=== PATIENT | female | born 1950 | race Caucasian/White ===

== ENCOUNTER 2018-01-26 22:48 | Observation (INO) | payer MEDICARE, SELFPAY ==
--- NOTE | 2018-01-26 | CT_ITS ---
STUDY: CTA CHEST REASON FOR EXAM: Female, 67 years old. Elevated d-dimer RADIATION DOSAGE (If Supplied By Facility): CTDIvol = ( 13.60 ) mGy, DLP = ( 452.59 ) mGycm TECHNIQUE: The examination was performed with the intravenous administration of 75ML ml of Isovue 370 contrast material. Post-processing of the angiographic images was performed, with multiplanar reformation and 3D reconstruction. Individualized dose optimization techniques were used for this CT. COMPARISON: None. FINDINGS: Small hiatal hernia. The contrast bolus is suboptimal for accurately detecting pulmonary emboli. Normal thoracic aorta and visualized great vessels. There is no demonstrated aortic dissection. Normal heart and pericardium. Normal mediastinum. Normal hilar regions. Tracheobronchial calcifications. The lungs are well expanded. Normal pulmonary parenchyma. Normal pleura. Normal chest wall structures. There are degenerative changes of thoracic spine. Normal visualized upper abdomen. CT/CTA Chest W/WO Contrast IMPRESSION: The contrast bolus is suboptimal for accurately detecting pulmonary emboli. If there is further concern, consider nuclear medicine ventilation/perfusion lung scan. No acute pulmonary or mediastinal findings. Electronically Signed: Srinivas Willis MD at 1:08 EDT Tel , Service support ,
[2018-01-26 22:49] VITALS: BP 152/79; PULSE 96; RESP 18; TEMP 37; O2SAT 98; BMI 25.4
--- NOTE | 2018-01-26 22:54 | CT_ITS ---
STUDY: CT BRAIN WITHOUT CONTRAST REASON FOR EXAM: Female, 67 years old. Found lying on floor and severe pain, doesn't remember fall RADIATION DOSAGE (If Supplied By Facility): CTDIvol = ( 44.99 ) mGy, DLP = ( 779.24 ) mGycm TECHNIQUE: Transaxial CT imaging of the brain was performed without administration of intravenous contrast material. Individualized dose optimization techniques were used for this CT. COMPARISON: None. FINDINGS: Normal soft tissue structures. Normal calvarium. Normal size ventricles and extra-axial spaces for the patient's age. There are areas of decreased attenuation within the white matter tracts of the supratentorial brain, consistent with microvascular disease changes. Age-related changes of the basal ganglia. Normal brainstem. Normal cerebellum. There is no intracranial hemorrhage. There are no findings of an acute ischemic infarction. Normal visualized paranasal sinuses. CT/Brain/Head without Contrast IMPRESSION: No fracture or hemorrhage. No evidence of acute infarct. Electronically Signed: Srinivas Willis MD at 0:11 EDT Tel , Service support ,
--- NOTE | 2018-01-26 22:55 | EKG12_ITS ---
Test Reason : SYNCOPE Blood Pressure : / mmHG Vent. Rate : 090 BPM Atrial Rate : 090 BPM P-R Int : 118 ms QRS Dur : 084 ms QT Int : 384 ms P-R-T Axes : 059 092 067 degrees QTc Int : 469 ms Normal sinus rhythm Rightward axis Borderline ECG Confirmed by PRUDENCIO CORTES, GABINO ([id number]), industrial editor PAOLA RILEY ([id number] on 02/03/2018 1:43:03 PM Referred By: KARLOS Confirmed By:GABINO FLANNERY MD
--- NOTE | 2018-01-26 22:56 | CT_ITS ---
STUDY: CT CERVICAL SPINE WITHOUT CONTRAST REASON FOR EXAM: Female, 67 years old. FOUND LAYING ON FLOOR IN SEVERE PAIN WITH LEG CRAMPS, DOESN'T REMEMBER THE FALL RADIATION DOSAGE (If Supplied By Facility): CTDIvol = ( 15.91 ) mGy, DLP = ( 334.77 ) mGycm TECHNIQUE: High resolution transaxial imaging was performed without contrast material. Sagittal and coronal images were reconstructed. Individualized dose optimization techniques were used for this CT. COMPARISON: None FINDINGS: Normal craniovertebral junction. Degenerative changes are present involving the atlantodental articulation. Normal odontoid process. Normal cervical lordosis. Normal vertebral bodies and posterior osseous elements. Diffuse degenerative disease is present. No acute fractures or dislocations are seen. Carotid calcifications. CT/Spine Cervical without Contras IMPRESSION: No acute osseous injury is evident. Comment: MRI is more sensitive than CT in detecting cord injury, ligament injury, and epidural hematoma. If there is continued clinical concern for any of these entities, MRI correlation should be considered if possible. Electronically Signed: Srinivas Willis MD at 0:13 EDT Tel , Service support ,
--- NOTE | 2018-01-26 22:57 | ED.VISSUMM ---
- ER Visit Summary Date of Service: 01/26/18 Chief Complaint: Syncopal episode History of Present Illness: The patient is a 67 F who presents after syncopal episode. Patient was at home in her basement when her heard a crashing sound and found her laying on the ground. Patient was not near any staircase. Patient does not remember the episode and denies any prodromal symptoms. She has felt well today and has not had a headache, dizziness, lightheadedness, chest pain, shortness of breath or any other complaints. She is currently complaining of nausea and had bilateral thigh muscle cramping after regaining consciousness but has no other complaints, including headache, neck pain, back pain or any other complaints. 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 She is currently not on anticoagulation and denies any recent travel, surgery. She has no calf pain, shortness of breath, chest pain dizziness or lightheadedness currently. Denies any medical problems. Physical Examination: Vital signs: afebrile, hemodynamically stable, heart rate 96, no hypoxia on room air General: well nourished, well developed, in no distress Skin: warm, dry, no rash, no pallor HEENT: normocephalic and atraumatic; PERRL, EOMI, moist mucous membranes Neck, no midline tenderness deformities or step-offs, full range of motion Cardiovascular: regular rate and rhythm without murmurs, no peripheral edema, 2+ pulses all distal extremities Respiratory: No increased work of breathing, lungs are clear to auscultation bilaterally, no rales, rhonchi or wheezing Abdominal: Abdomen is soft, nontender with normoactive bowel sounds, no guarding or rebound, no masses MSK: Moves all extremities, no deformities, normal strength, no calf tenderness, asymmetry, palpable cords, negative Homans sign Neuro: Awake and alert, oriented ?4. No facial droop, sensation and motor function intact and symmetric Test Results: Abnormal Lab Results 01/26/18 01/26/18 01/26/18 22:55 22:55 22:55 WBC 10.2 RBC 4.30 Hgb 12.8 Hct 39.0 MCV 90.7 MCH 29.8 MCHC 32.8 RDW 14.1 RDW Differential 46.3 H Plt Count 236 MPV 10.4 Immature Gran % (Auto) 0.300 Neut % (Auto) 57.6 Lymph % (Auto) 32.1 [place] % (Auto) 7.1 Eos % (Auto) 2.3 Baso % (Auto) 0.6 Absolute Neuts (auto) 5.9 Absolute Lymphs (auto) 3.28 Total Counted Not Reportable PT 12.0 INR 0.9 APTT 23.0 L D-Dimer Quant (PE/DVT) 1.46 H* Sodium 142 Potassium 3.8 Chloride 108 H Carbon Dioxide 25.0 Anion Gap 9 BUN 13 Creatinine 1.23 H Estim Creat Clear Calc 33.95 Est GFR (MDRD) Af Amer 56 L Est GFR (MDRD) Non-Af 46 L BUN/Creatinine Ratio 10.6 Glucose 135 H Calcium 8.6 Magnesium Total Bilirubin 0.60 AST 14 L ALT 19 Alkaline Phosphatase 64 Troponin I < 0.015 Total Protein 6.9 Albumin 3.6 Globulin 3.3 Albumin/Globulin Ratio 1.1 Urine Color Urine Clarity Urine pH Ur Specific [place] Urine Protein Urine Glucose (UA) Urine Ketones Urine Occult Blood Urine Nitrite Urine Bilirubin Urine Urobilinogen Ur Leukocyte Esterase Urine RBC Urine WBC Ur Squamous Epith Cells Urine Bacteria Urine Mucus POC Glucose 01/26/18 01/26/18 01/26/18 22:55 23:20 23:22 WBC RBC Hgb Hct MCV MCH MCHC RDW RDW Differential Plt Count MPV Immature Gran % (Auto) Neut % (Auto) Lymph % (Auto) [place] % (Auto) Eos % (Auto) Baso % (Auto) Absolute Neuts (auto) Absolute Lymphs (auto) Total Counted PT INR APTT D-Dimer Quant (PE/DVT) Sodium Potassium Chloride Carbon Dioxide Anion Gap BUN Creatinine Estim Creat Clear Calc Est GFR (MDRD) Af Amer Est GFR (MDRD) Non-Af BUN/Creatinine Ratio Glucose Calcium Magnesium 1.9 Total Bilirubin AST ALT Alkaline Phosphatase Troponin I Total Protein Albumin Globulin Albumin/Globulin Ratio Urine Color Yellow Urine Clarity Clear Urine pH 6.5 Ur Specific [place] 1.010 Urine Protein 15 H Urine Glucose (UA) Normal Urine Ketones Negative Urine Occult Blood 10 H Urine Nitrite Negative Urine Bilirubin Negative Urine Urobilinogen Normal Ur Leukocyte Esterase Negative Urine RBC 0-5 SEEN Urine WBC 0 SEEN Ur Squamous Epith Cells 0 SEEN Urine Bacteria 0 SEEN Urine Mucus 0 SEEN POC Glucose 131 H Clinical Impression(s) from Imaging Studies Chest CTA 01/26/18 00:00 IMPRESSION: The contrast bolus is suboptimal for accurately detecting pulmonary emboli. If there is further concern, consider nuclear medicine ventilation/perfusion lung scan. No acute pulmonary or mediastinal findings. Electronically Signed: Srinivas Willis MD at 1:08 EDT Tel , Service support , Brain CT 01/26/18 22:54 IMPRESSION: No fracture or hemorrhage. No evidence of acute infarct. Electronically Signed: Srinivas Willis MD at 0:11 EDT Tel , Service support , Cervical Spine CT 01/26/18 22:56 IMPRESSION: No acute osseous injury is evident. Comment: MRI is more sensitive than CT in detecting cord injury, ligament injury, and epidural hematoma. If there is continued clinical concern for any of these entities, MRI correlation should be considered if possible. Electronically Signed: Srinivas Willis MD at 0:13 EDT Tel , Service support , Chest X-Ray 01/26/18 23:05 IMPRESSION: No acute thoracic pathology. Electronically Signed: Jude Ayala, at 23:35 EDT Tel , Service support , Medications Given Discontinued Medications Acetaminophen (Tylenol) 1,000 mg PO X1 ONE Stop: 01/27/18 00:15 Last Admin: 01/27/18 00:17 Dose: 1,000 mg Sodium Chloride () 1,000 mls @ 1,000 mls/hr IV .Q1H ONE Stop: 01/26/18 23:53 Last Admin: 01/26/18 23:16 Dose: 1,000 mls/hr Ondansetron HCl (Zofran) 4 mg IV X1 ONE Stop: 01/26/18 22:55 Last Admin: 01/26/18 23:16 Dose: 4 mg Emergency Department Course and Treatment: Patient is currently sniffing an alcohol prep pad and has improvement in her nausea. Syncope workup was performed. EKG showed a sinus rhythm without ischemia or ectopy. No pro arrhythmic changes noted. It was unchanged from a prior EKG. Labs showed no leukocytosis or anemia. No electrolyte derangements that would explain her cramping. Troponin was negative. CT of the head and neck was performed due to the history of unwitnessed trauma. CT head showed no intracranial hemorrhage and C-spine showed no acute fracture. Because patient had the syncopal episode and is currently having leg pain, was tachycardic at initial evaluation, and has a history of unprovoked DVT in the past, d-dimer was performed to evaluate for possible venous thromboembolism contributing to the syncopal episode. D-dimer was elevated. A CTA of the chest was performed to look for pulmonary embolism, and the contrast bolus was not timed to be able to adequately evaluate for PE. I have discussed with patient and family that even if her workup tonight did not give an exact cause of her syncopal episode, we could not rule out that it was a cardiac dysrhythmia that caused the sudden syncope without prodromal symptoms and that she would require admission for further workup for her syncope. Patient was discussed with the hospitalist for admission, including further workup for possible pulmonary embolism given that the CTA of the chest was nondiagnostic. At this time patient is not hypoxic, has no tachypnea. Heart rate is still in the 90s but no further tachycardia. Patient is agreeable with this plan and was admitted for further syncopal workup. Treatment Plan: [] Disposition: [] Impression: Syncopal episode, elevated d-dimer, muscle cramps, history of unprovoked DVT This note was generated with [employer] dictation software. It may contain incorrect words, spelling, and punctuation that were not noted in review of the chart prior to signing ED Disposition - Plan for ED Patient: Chief Complaint: Syncope
--- NOTE | 2018-01-26 23:00 | ED.DCSUM_ITS ---
- ER Visit Summary Date of Service: 01/26/18 Chief Complaint: Syncopal episode History of Present Illness: The patient is a 67 F who presents after syncopal episode. Patient was at home in her basement when her heard a crashing sound and found her laying on the ground. Patient was not near any staircase. Patient does not remember the episode and denies any prodromal symptoms. She has felt well today and has not had a headache, dizziness, lightheadedness, chest pain, shortness of breath or any other complaints. She is currently complaining of nausea and had bilateral thigh muscle cramping after regaining consciousness but has no other complaints, including headache, neck pain, back pain or any other complaints. 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 She is currently not on anticoagulation and denies any recent travel, surgery. She has no calf pain, shortness of breath, chest pain dizziness or lightheadedness currently. Denies any medical problems. Physical Examination: Vital signs: afebrile, hemodynamically stable, heart rate 96, no hypoxia on room air General: well nourished, well developed, in no distress Skin: warm, dry, no rash, no pallor HEENT: normocephalic and atraumatic; PERRL, EOMI, moist mucous membranes Neck, no midline tenderness deformities or step-offs, full range of motion Cardiovascular: regular rate and rhythm without murmurs, no peripheral edema, 2+ pulses all distal extremities Respiratory: No increased work of breathing, lungs are clear to auscultation bilaterally, no rales, rhonchi or wheezing Abdominal: Abdomen is soft, nontender with normoactive bowel sounds, no guarding or rebound, no masses MSK: Moves all extremities, no deformities, normal strength, no calf tenderness, asymmetry, palpable cords, negative Homans sign Neuro: Awake and alert, oriented ?4. No facial droop, sensation and motor function intact and symmetric Test Results: Abnormal Lab Results 01/26/18 01/26/18 01/26/18 22:55 22:55 22:55 WBC 10.2 RBC 4.30 Hgb 12.8 Hct 39.0 MCV 90.7 MCH 29.8 MCHC 32.8 RDW 14.1 RDW Differential 46.3 H Plt Count 236 MPV 10.4 Immature Gran % (Auto) 0.300 Neut % (Auto) 57.6 Lymph % (Auto) 32.1 [place] % (Auto) 7.1 Eos % (Auto) 2.3 Baso % (Auto) 0.6 Absolute Neuts (auto) 5.9 Absolute Lymphs (auto) 3.28 Total Counted Not Reportable PT 12.0 INR 0.9 APTT 23.0 L D-Dimer Quant (PE/DVT) 1.46 H* Sodium 142 Potassium 3.8 Chloride 108 H Carbon Dioxide 25.0 Anion Gap 9 BUN 13 Creatinine 1.23 H Estim Creat Clear Calc 33.95 Est GFR (MDRD) Af Amer 56 L Est GFR (MDRD) Non-Af 46 L BUN/Creatinine Ratio 10.6 Glucose 135 H Calcium 8.6 Magnesium Total Bilirubin 0.60 AST 14 L ALT 19 Alkaline Phosphatase 64 Troponin I < 0.015 Total Protein 6.9 Albumin 3.6 Globulin 3.3 Albumin/Globulin Ratio 1.1 Urine Color Urine Clarity Urine pH Ur Specific [place] Urine Protein Urine Glucose (UA) Urine Ketones Urine Occult Blood Urine Nitrite Urine Bilirubin Urine Urobilinogen Ur Leukocyte Esterase Urine RBC Urine WBC Ur Squamous Epith Cells Urine Bacteria Urine Mucus POC Glucose 01/26/18 01/26/18 01/26/18 22:55 23:20 23:22 WBC RBC Hgb Hct MCV MCH MCHC RDW RDW Differential Plt Count MPV Immature Gran % (Auto) Neut % (Auto) Lymph % (Auto) [place] % (Auto) Eos % (Auto) Baso % (Auto) Absolute Neuts (auto) Absolute Lymphs (auto) Total Counted PT INR APTT D-Dimer Quant (PE/DVT) Sodium Potassium Chloride Carbon Dioxide Anion Gap BUN Creatinine Estim Creat Clear Calc Est GFR (MDRD) Af Amer Est GFR (MDRD) Non-Af BUN/Creatinine Ratio Glucose Calcium Magnesium 1.9 Total Bilirubin AST ALT Alkaline Phosphatase Troponin I Total Protein Albumin Globulin Albumin/Globulin Ratio Urine Color Yellow Urine Clarity Clear Urine pH 6.5 Ur Specific [place] 1.010 Urine Protein 15 H Urine Glucose (UA) Normal Urine Ketones Negative Urine Occult Blood 10 H Urine Nitrite Negative Urine Bilirubin Negative Urine Urobilinogen Normal Ur Leukocyte Esterase Negative Urine RBC 0-5 SEEN Urine WBC 0 SEEN Ur Squamous Epith Cells 0 SEEN Urine Bacteria 0 SEEN Urine Mucus 0 SEEN POC Glucose 131 H Clinical Impression(s) from Imaging Studies Chest CTA 01/26/18 00:00 IMPRESSION: The contrast bolus is suboptimal for accurately detecting pulmonary emboli. If there is further concern, consider nuclear medicine ventilation/perfusion lung scan. No acute pulmonary or mediastinal findings. Electronically Signed: Srinivas Willis MD at 1:08 EDT Tel , Service support , Brain CT 01/26/18 22:54 IMPRESSION: No fracture or hemorrhage. No evidence of acute infarct. Electronically Signed: Srinivas Willis MD at 0:11 EDT Tel , Service support , Cervical Spine CT 01/26/18 22:56 IMPRESSION: No acute osseous injury is evident. Comment: MRI is more sensitive than CT in detecting cord injury, ligament injury, and epidural hematoma. If there is continued clinical concern for any of these entities, MRI correlation should be considered if possible. Electronically Signed: Srinivas Willis MD at 0:13 EDT Tel , Service support , Chest X-Ray 01/26/18 23:05 IMPRESSION: No acute thoracic pathology. Electronically Signed: Jude Ayala, at 23:35 EDT Tel , Service support , Medications Given Discontinued Medications Acetaminophen (Tylenol) 1,000 mg PO X1 ONE Stop: 01/27/18 00:15 Last Admin: 01/27/18 00:17 Dose: 1,000 mg Sodium Chloride () 1,000 mls @ 1,000 mls/hr IV .Q1H ONE Stop: 01/26/18 23:53 Last Admin: 01/26/18 23:16 Dose: 1,000 mls/hr Ondansetron HCl (Zofran) 4 mg IV X1 ONE Stop: 01/26/18 22:55 Last Admin: 01/26/18 23:16 Dose: 4 mg Emergency Department Course and Treatment: Patient is currently sniffing an alcohol prep pad and has improvement in her nausea. Syncope workup was performed. EKG showed a sinus rhythm without ischemia or ectopy. No pro arrhythmic changes noted. It was unchanged from a prior EKG. Labs showed no leukocytosis or anemia. No electrolyte derangements that would explain her cramping. Troponin was negative. CT of the head and neck was performed due to the history of unwitnessed trauma. CT head showed no intracranial hemorrhage and C-spine showed no acute fracture. Because patient had the syncopal episode and is currently having leg pain, was tachycardic at initial evaluation, and has a history of unprovoked DVT in the past, d-dimer was performed to evaluate for possible venous thromboembolism contributing to the syncopal episode. D-dimer was elevated. A CTA of the chest was performed to look for pulmonary embolism, and the contrast bolus was not timed to be able to adequately evaluate for PE. I have discussed with patient and family that even if her workup tonight did not give an exact cause of her syncopal episode, we could not rule out that it was a cardiac dysrhythmia that caused the sudden syncope without prodromal symptoms and that she would require admission for further workup for her syncope. Patient was discussed with the hospitalist for admission, including further workup for possible pulmonary embolism given that the CTA of the chest was nondiagnostic. At this time patient is not hypoxic, has no tachypnea. Heart rate is still in the 90s but no further tachycardia. Patient is agreeable with this plan and was admitted for further syncopal workup. Treatment Plan: [] Disposition: [] Impression: Syncopal episode, elevated d-dimer, muscle cramps, history of unprovoked DVT This note was generated with [employer] dictation software. It may contain incorrect words, spelling, and punctuation that were not noted in review of the chart prior to signing ED Disposition - Plan for ED Patient: Chief Complaint: Syncope
--- NOTE | 2018-01-26 23:05 | RAD_ITS ---
STUDY: X-RAY CHEST REASON FOR EXAM: Female, 67 years old. Syncope TECHNIQUE: Frontal view of the chest COMPARISON: 05/27/2016 FINDINGS: The lungs are clear. There are no pleural effusions. There is no pneumothorax. The heart is normal in size. The visualized osseous structures are within normal limits. RAD/Chest 1 View (Portable) IMPRESSION: No acute thoracic pathology. Electronically Signed: Jude Ayala, at 23:35 EDT Tel , Service support ,
[2018-01-26 23:11] LABS: Absolute Lymphocyte Count 3.28 X10^3/ul (0.83-4.51); Absolute Neutrophil Count 5.9 X10^3/uL (2.0-7.7); Basophil# 0.06 X10^3/uL; Basophil% 0.6 % (0-1); Eosinophil# 0.24 X10^3/uL; Eosinophils% 2.3 % (0-5); Hemoglobin 12.8 g/dl (12.0-15.0); Lymphocyte # 3.28 X10^3/ul (4.0); Lymphocyte % 32.1 % (19-41); Mean Corp Hgb Conc 32.8 g/gl (32-36); Mean Corpuscular Hgb 29.8 pg (27.0-32.0); Mean Corpuscular Volume 90.7 fL (81-99); Mean Platelet Vol. 10.4 fl (6.2-12.0); Monocyte# 0.73 X10^3/uL; Monocyte% 7.1 % (0-10); Neutrophil # 5.88 X10^3/uL (2.7-7.7); Neutrophil % 57.6 % (47-70); POSITIVE COUNT NO; POSITIVE DIFFERENTIAL NO; POSITIVE MORPHOLOGY NO; Platelet Count 236 K/mm3 (150-450); RBC Distribution Width CV 14.1 % (11.6-14.6); RBC Distribution Width SD 46.3 fl (35.1-43.9); White Blood Count 10.2 K/mm3 (4.4-11.0)
[2018-01-26] MEDS: Ondansetron 4 MG/2 ML Vial IV (23:16)
[2018-01-26] MEDS: 0.9% Normal Saline 1,000 ML 1000 ML IV (23:16)
[2018-01-26 23:19] LABS: International Normalized Ratio 0.9
[2018-01-26 23:27] LABS: ALB/GLOB Ratio 1.1 RATIO (0.9-2.4); AST(SGOT) 14 U/L (15-37); Alanine Aminotransfer ALT/SGPT 19 U/L (13-56); Albumin, Serum 3.6 g/dL (3.2-5.0); Alkaline Phosphatase 64 U/L (45-117); Anion Gap 9 (5-15); BUN 13 mg/dL (7-18); BUN/Creat Ratio 10.6 RATIO (10-20); Calcium,Total 8.6 mg/dL (8.5-10.1); Chloride 108 mmol/L (98-107); Creatinine, Serum 1.23 mg/dL (0.55-1.02); EST Glomerular Filtration Rate 46 mL/min (>60); Est Glom Filt Rate - Afr Amer 56 mL/min (>60); Estimated Creatinine Clearance 33.95 ml/min; Globulin 3.3 g/dL (2.2-4.2); Glucose 135 mg/dL (74-106); Potassium 3.8 mmol/L (3.5-5.1); Protein, Total 6.9 g/dL (6.4-8.2); Sodium Level 142 mmol/L (136-145)
[2018-01-26 23:28] LABS: Bacteria 0 SEEN /hpf (None Seen); Mucous, Urine 0 SEEN /hpf (<or=2+); Squamous Epithelial Cells - UA 0 SEEN /hpf (5-10); White Blood Cells 0 SEEN /hpf (0-5)
[2018-01-26 23:30] LABS: Bedside Glucose 131 mg/dL (70-110)
[2018-01-26 23:34] LABS: Color, Urine Yellow (Yellow); Glucose, Dipstick Normal (Normal); Ketone-Dipstick Negative (Negative); Leukocyte Esterase-Dipstick Negative /ul (Negative); Nitrite-Dipstick Negative (Negative); Occult Blood-Urine 10 /ul (Negative); Protein-Dipstick 15 mg/dl (Negative); Urine Bilirubin Dipstick Negative (Negative); Urine Clarity Clear (Clear); Urine Urobilinogen Normal (Normal); Urine pH 6.5 (5.0 - 8.0)
[2018-01-26 23:37] LABS: D-Dimer Quantitative (DVT/PE) 1.46 FEU/ug/m (0.27-0.49)
[2018-01-26 23:42] LABS: Red Blood Cells-Urine 0-5 SEEN /hpf (0-5)
[2018-01-27] VITALS (13 sets, daily range): BP systolic 133–149; BP diastolic 76–93; PULSE 66–109; RESP 16–18; TEMP 36.5–37.1; O2SAT 96–99; BMI 25.5; BMI 23.9
[2018-01-27] MEDS: Acetaminophen 500 MG Tablet 1000 MG PO (00:17)
--- NOTE | 2018-01-27 02:05 | PCM.HP.STD ---
Problem List (1) Syncope and collapse Status: Acute (2) SHAUNNA (acute kidney injury) Status: Acute History of Present Illness Date of Admission: 01/27/18 Chief Complaint: syncope with collapse The patient is a 67 year old F with a significant history of hypertension; and irritable bowel syndrome(spastic colon) who lost consciousness and fell at her kitchen. Her heard a loud noise and and found patient on the floor. Reportedly patient has some shortness of breath after she was found on the floor. Patient reported that she had some leg cramping when she woke up. Patient reports periodic leg cramping N every months. She reports phlebitis the posterior left leg for which reason she was placed on Coumadin for 8 weeks. ED doctor reported some mild tachycardia. At the emergency department d-dimer was elevated. Subsequent CTPA was nondiagnostic because of poor timing of contrast. At the emergency department patient was found to have severely elevated creatinine above her baseline. Past Medical History Medical History: Medical History (Last Updated 01/27/18 @ 03:27 by Dinh Lopez MD) HTN (hypertension) I10 Allergies No Known Allergies Allergy (Verified 01/26/18 22:55) Surgical History: hysterectomy, - - x 2. Vein surgery. Lives: Spouse/ Significant Other Smoking Status: Former smoker Alcohol: None - *Family History Maternal History Items: Diabetes - Maternal uncle had diabetes. Review of Systems Constitutional: Denies: Chills, Fever, Weight Change HEENT: Denies: Head Aches, Sinus Congestion, Sinus Drainage Cardiovascular: Denies: Chest Pain, Palpitations Respiratory: Reports: Shortness of Breath. Denies: Cough, Shortness of breath at rest, Sputum production Gastrointestinal: Denies: Abdominal Pain, Nausea, Vomiting Genitourinary: Denies: Dysuria Musculoskeletal: Denies: Joint Pain, Joint Tenderness Skin: Denies: Rash, Wounds Neurological: Reports: Numbness - left leg (chronic). Denies: Focal weakness, Tingling Psychiatric: Denies: Anxiety, Depression, Homicidal Ideations, Suicidal Ideations Hematologic/ Lymphatic: Denies: Easy Bruising, Easy Bleeding VTE Information - Inpt Only VTE Present on Admission: No VTE Mechan Device Prophylaxis: None VTE Pharm Prophylaxis ordered?: Yes Patient Problems: Active and Suspected Problems (Last Updated 01/27/18 @ 03:27 by Dinh Lopez MD) Syncope and collapse (Acute) SHAUNNA (acute kidney injury) (Acute) - Physical Exam General: Alert, Oriented x3, Cooperative HEENT: Atraumatic, PERRLA, EOMI, Normocephalic Neck: Supple, No JVD, Negative Carotid Bruits Lungs: Clear to auscultation, Normal air movement Cardiovascular: Regular rate, No murmurs Abdomen: Bowel Sounds Present, Soft, Non Tender Extremities: No edema, Capillary Refill Less than 3 Seconds Skin: No rashes, - - Redness of face Musculoskeletal: No Tenderness to Palpation of Joints or Extremities Neurological: Cranial nerves II-XII grossly intact Psych/Mental Status: Normal Affect, Appropriate Vital Signs Temp Pulse Resp BP Pulse Ox 98.6 F 96 16 142/76 H 98 01/26/18 22:49 01/27/18 01:02 01/27/18 01:02 01/27/18 01:02 01/27/18 01:02 Oxygen Delivery Method Room Air Weight: 61.235 kg Body Mass Index (BMI) 25.4 Finger Stick Blood Glucose 131 Laboratory Tests Past 24 Hrs 01/26/18 01/26/18 01/26/18 22:55 22:55 22:55 WBC 10.2 RBC 4.30 Hgb 12.8 Hct 39.0 MCV 90.7 MCH 29.8 MCHC 32.8 RDW 14.1 RDW Differential 46.3 H Plt Count 236 MPV 10.4 Immature Gran % (Auto) 0.300 Neut % (Auto) 57.6 Lymph % (Auto) 32.1 [place] % (Auto) 7.1 Eos % (Auto) 2.3 Baso % (Auto) 0.6 Absolute Neuts (auto) 5.9 Absolute Lymphs (auto) 3.28 Total Counted Not Reportable PT 12.0 INR 0.9 APTT 23.0 L D-Dimer Quant (PE/DVT) 1.46 H* Sodium 142 Potassium 3.8 Chloride 108 H Carbon Dioxide 25.0 Anion Gap 9 BUN 13 Creatinine 1.23 H Estim Creat Clear Calc 33.95 Est GFR (MDRD) Af Amer 56 L Est GFR (MDRD) Non-Af 46 L BUN/Creatinine Ratio 10.6 Glucose 135 H Calcium 8.6 Total Bilirubin 0.60 AST 14 L ALT 19 Alkaline Phosphatase 64 Troponin I < 0.015 Total Protein 6.9 Albumin 3.6 Globulin 3.3 Albumin/Globulin Ratio 1.1 Urine Color Urine Clarity Urine pH Ur Specific [place] Urine Protein Urine Glucose (UA) Urine Ketones Urine Occult Blood Urine Nitrite Urine Bilirubin Urine Urobilinogen Ur Leukocyte Esterase Urine RBC Urine WBC Ur Squamous Epith Cells Urine Bacteria Urine Mucus 01/26/18 23:20 WBC RBC Hgb Hct MCV MCH MCHC RDW RDW Differential Plt Count MPV Immature Gran % (Auto) Neut % (Auto) Lymph % (Auto) [place] % (Auto) Eos % (Auto) Baso % (Auto) Absolute Neuts (auto) Absolute Lymphs (auto) Total Counted PT INR APTT D-Dimer Quant (PE/DVT) Sodium Potassium Chloride Carbon Dioxide Anion Gap BUN Creatinine Estim Creat Clear Calc Est GFR (MDRD) Af Amer Est GFR (MDRD) Non-Af BUN/Creatinine Ratio Glucose Calcium Total Bilirubin AST ALT Alkaline Phosphatase Troponin I Total Protein Albumin Globulin Albumin/Globulin Ratio Urine Color Yellow Urine Clarity Clear Urine pH 6.5 Ur Specific [place] 1.010 Urine Protein 15 H Urine Glucose (UA) Normal Urine Ketones Negative Urine Occult Blood 10 H Urine Nitrite Negative Urine Bilirubin Negative Urine Urobilinogen Normal Ur Leukocyte Esterase Negative Urine RBC 0-5 SEEN Urine WBC 0 SEEN Ur Squamous Epith Cells 0 SEEN Urine Bacteria 0 SEEN Urine Mucus 0 SEEN POC Glucose 01/26/18 23:22 POC Glucose 131 H Assessment/Plan All Active Problems (Last Updated 01/27/18 @ 03:27 by Dinh Lopez MD) Syncope and collapse (Acute) SHAUNNA (acute kidney injury) (Acute) The patient is a 67 year old F with a significant history of hypertension; and irritable bowel syndrome(spastic colon) who lost consciousness and fell at her kitchen. Syncope with collapse. Etiology is unclear at this time. Likely vasovagal as patient had no prodrome. Patient with no seizure activity; tongue biting or loss of bowel or bladder during episode. Orthostatic blood pressures ordered. Echocardiogram ordered. Less likely to be PE as patient has fully recovered. Because of elevated d-dimer will do further studies for PE. Since patient already received contrast and now she is in SHAUNNA will do V/Q SCAN Consider conversation with cardiology for consideration of event monitor/loop recorder. Consult not placed at this time. SHAUNNA Creatinine on admission was 1.23. Creatinine in 2005 was 0.95. BUN over creatinine is less than 20. Urine osmolality, urine sodium and urine creatinine ordered. Received IV, saline bolus at the ED. Patient at further risk of kidney injury due to IV contrast for CTPA. Gentle IV fluid hydration with half-normal saline since she is mildly hyperchloremic.. Trend BMP. Hypertension At admission blood pressure was not within goal. Patient reported that she takes some antihypertensive medication better but she does not know the name. Labetalol ordered. Bilateral legs cramp. This is chronic. However because of elevated d-dimer will order bilateral leg Doppler. Magnesium, calcium, sodium unremarkable. CPK ordered Irritable bowel syndrome At home patient takes some kind of tea every morning to make her bowels move. MiraLAX daily ordered. DVT prophylaxis Subcutaneous heparin. Code Visit OBSV E&M: [id number] Initial observation care L3
[2018-01-27 02:48] LABS: Magnesium 1.9 mg/dL (1.6-2.6)
--- NOTE | 2018-01-27 03:46 | VDLE_ITS ---
Reason For Study: Elevated D dimer RIGHT LEFT GSV is normal. CFV is compressible, spontaneous, phasic, CFV is compressible, spontaneous, phasic, competent, and demonstrates normal competent and demonstrates normal augmentation. augmentation. FV is compressible, spontaneous, phasic, FV is compressible, spontaneous, phasic, competent and demonstrates normal competent and demonstrates normal augmentation. augmentation. POP V is compressible, spontaneous, phasic, POP V is compressible, spontaneous, phasic, competent and demonstrates normal competent and demonstrates normal augmentation. augmentation. T/P Trunk is compressible. T/P Trunk is compressible. PTV is compressible. PTV is compressible. LT PerV is compressible. RT PerV is compressible. Lt GSV not seen. Hypoechoic, non vascular structure noted Rt Pop Fossa measuring 1.46cm x 2.06cm. Procedure Exam performed portable in patient room. A preliminary report was called and/or faxed to [place] [facility]. <> Interpretation Summary Right medial popliteal space 1.46 x 2.06 cm, probable small Murry's cyst No evidence for acute deep venous thrombosis bilateral lower extremities. Patent and compressible right great saphenous vein Non visualized left great saphenous vein Ordering Physician: Dinh Lopez Referring Physician: Manju Santos Performed By: Maris Jacobs, ANAYELI, RVT
--- NOTE | 2018-01-27 03:46 | NM_ITS ---
CLINICAL: 67-year-old female with reported history of syncopal episode and elevation of the d-dimer. VENTILATION-PERFUSION LUNG SCINTIGRAPHY COMPARISON: CTA of the chest report 01/27/2018, plain film chest radiograph report 01/26/2018 FINDINGS: The patient was administered 48.2 mCi 99m Tc DTPA aerosol. The aerosol ventilation study demonstrates mild heterogeneous ventilation throughout the bilateral lung willett without corresponding radiographic changes defined on plain film chest x-ray report 01/26/2018. Central clumping of the aerosol is noted in the bilateral hemithorax. Following the intravenous administration of 5.5 mCi of 99m Tc MAA the pulmonary perfusion study reveals uniform perfusion throughout both lung willett. There are no segmental or subsegmental perfusion defects identified. There are no ventilation-perfusion mismatches observed. NM/Lung Scan Vent/Perf IMPRESSION: 1. NORMAL 99m Tc MAA pulmonary perfusion imaging examination, according to PIOPED II interpretive criteria. (Sotsman et al, Radiology 246: 941, 2008 Sorodney et al, J Nucl Med 49: 1741, 2008). 2. Central clumping of the aerosol may be secondary to obstructive airway mechanics and or clinical tachypnea. Electronically Signed: Marc Franz DO at 11:26 EDT Tel , Service support ,
--- NOTE | 2018-01-27 03:46 | ECHOD_ITS ---
Reason For Study: Arrhythmia Procedure This was a 2D Doppler, Color Flow transthoracic echocardiogram. Exam performed portable in patient room. Left Ventricle Normal size and thickness. The estimated ejection fraction is 65 %. Stage 1 diastolic dysfunction. No regional wall motion abnormalities noted. Right Ventricle Normal size and thickness. Normal systolic function. Atria Normal left atrium. Normal right atrium. Normal atrial septum. Mitral Valve The mitral valve is structurally normal. No prolapse or stenosis seen. Tricuspid Valve Normal tricuspid valve. Trivial tricuspid valve insufficiency. Right ventricular systolic pressure estimated to be 27 mmHg. Aortic Valve Trisinus/trileaflet aortic valve. Normal aortic valve. Pulmonic Valve Normal pulmonic valve. Trivial pulmonic valve insufficiency. Great Vessels Normal aortic root. Normal arch. Normal inferior vena cava. Inferior vena cava collapse with sniff. Pericardium/Pleural No pericardial effusion. MMode/2D Measurements & Calculations LVIDd: 4.3 cm IVSd: 0.84 cm Ao root diam: 3.4 cm LVIDs: 2.2 cm LVPWd: 0.65 cm LA dimension: 3.1 cm RVDd: 3.7 cm FS: 48.7 % LAV(MOD-bp): 39.3 ml LA A4 area: 14.9 cm2 RA A4 area: 12.6 cm2 LAV(MOD-bp) Indexed: 24.7 ml/m2 LAV(MOD-sp2): 32.9 ml LAV(MOD-sp4): 41.1 ml Time Measurements MV dec time: 0.20 sec Doppler Measurements & Calculations MV E max jasbir: 85.7 cm/sec Lat Peak E' Jasbir: 14.2 cm/sec Med Peak E' Jasbir: 8.6 cm/sec MV A max jasbir: 115.4 cm/sec E/E' lat: 6.0 E/E' med: 9.9 MV E/A: 0.74 MV V2 max: 113.6 cm/sec MV P1/2t max jasbir: 111.7 cm/sec Ao V2 max: 156.0 cm/sec MV max P.2 mmHg MV P1/2t: 38.7 msec Ao max P.7 mmHg MV V2 mean: 63.7 cm/sec MV dec slope: 846.3 cm/sec2 Ao V2 mean: 98.6 cm/sec MV mean P.9 mmHg MVA(P1/2t): 5.7 cm2 Ao mean P.6 mmHg MV V2 VTI: 33.0 cm Ao V2 VTI: 30.1 cm LV V1 max: 153.0 cm/sec PA V2 max: 98.2 cm/sec PI dec slope: 253.4 cm/sec2 LV V1 max P.4 mmHg LV V1 mean P.6 mmHg LV V1 mean: 97.9 cm/sec LV V1 VTI: 33.3 cm TR max jasbir: 235.4 cm/sec TR max P.2 mmHg Interpretation Summary The estimated ejection fraction is 65 %. Stage 1 diastolic dysfunction. Trivial tricuspid valve insufficiency. Right ventricular systolic pressure estimated to be 27 mmHg. Compared to echo report dated 08/23/2014, no appreciable changes noted. Ordering Physician: Dinh Lopez Referring Physician: Manju Santos Performed By: Alex Uribe RCS
[2018-01-27] MEDS: 0.9% NaCl Peripheral Flush Adult/Peds IV (04:05)
[2018-01-27] MEDS: 0.45% Normal Saline 1,000 ML 100 ML IV (04:10)
[2018-01-27 04:35] LABS: Urine Sodium 122 mmol/L (Not Establ.)
[2018-01-27 04:41] LABS: Osmolality, Urine 428 mOsm/KG
[2018-01-27] MEDS: Heparin Injection (Vial) 5,000 UNIT/ML VIAL 5000 UNIT SC ×3 (05:04→21:39)
[2018-01-27 05:57] LABS: Anion Gap 7 (5-15); BUN 12 mg/dL (7-18); BUN/Creat Ratio 11.7 RATIO (10-20); CPK Total, Creatine Kinase 321 U/L (26-192); Calcium,Total 8.2 mg/dL (8.5-10.1); Chloride 110 mmol/L (98-107); Creatinine, Serum 1.03 mg/dL (0.55-1.02); EST Glomerular Filtration Rate 57 mL/min (>60); Est Glom Filt Rate - Afr Amer 69 mL/min (>60); Estimated Creatinine Clearance 42.49 ml/min; Glucose 88 mg/dL (74-106); Sodium Level 144 mmol/L (136-145)
--- NOTE | 2018-01-27 08:08 | PN_ITS ---
Progress Note This is a 67 years old female patient admitted because of syncopal episode. Patient was sitting on her couch and all of a sudden, she passed out. Patient did not remember until she found herself on the floor and according to her, she was confused according to her . Denies any prodromal symptoms before the syncopal event such as chest pain, shortness of breath, palpitation, dizziness or lightheadedness. She was told by her that when she had a syncopal episode, her eyes rolled back and she was confused and stumbling after she woke up. Also, she complained of bilateral leg cramps. She mentioned that usually she gets leg cramps when she does lots of activities at home but not usually at rest and yesterday, she had no physical activity at home. Physical examination is unremarkable. Vital signs are stable. Orthostatic vitals were negative. Routine blood work remarkable for creatinine of 1.23 indicating mild dehyd ration, otherwise normal. Troponin is negative. EKG showed normal sinus rhythm without evidence of acute ischemic changes or cardiac arrhythmias. Troponin is negative. LFTs normal. D-dimer was elevated. CT scan brain without acute findings. CT scan cervical spine without acute fractures or dislocations. Chest x-ray showed no acute findings. CTA chest was suboptimal but showed no evidence of PE or dissection. Plan: Bilateral venous Doppler of both legs ordered as well as ventilation/perfusion lung scan. Her presentation is of concern for seizure. My plan is to add EEG and consult neurology.
[2018-01-27] MEDS: Polyethylene Glycol 3350 17 GM PACKET PO (10:14)
--- NOTE | 2018-01-27 10:16 | PCM.CONS.GEN ---
Reason for Consult Date of Consultation: 01/27/18 Reason for Consultation: LOC History of Present Illness: The patient is a 67 year old right handed white female presents after spell last night at 1030pm, lost conscious. apparently started feeling abnormal around 9pm, went to bed, then really doesnt remember anything until at the hospital, normal around 1:30am per daughter. no antecedent illness or med changes. no gi/gu complaints. when she fell there is no mention of shaking, no tongue biting, no incontinence, no night spells. reports on coumadin decades ago. bp 190 about two weeks ago. also takes herbal tea. per admit h&p:The patient is a 67 year old F with a significant history of hypertension; and irritable bowel syndrome(spastic colon) who lost consciousness and fell at her kitchen. Her heard a loud noise and and found patient on the floor. Reportedly patient has some shortness of breath after she was found on the floor. Patient reported that she had some leg cramping when she woke up. Patient reports periodic leg cramping N every months. She reports phlebitis the posterior left leg for which reason she was placed on Coumadin for 8 weeks. ED doctor reported some mild tachycardia. At the emergency department d-dimer was elevated. Subsequent CTPA was nondiagnostic because of poor timing of contrast. At the emergency department patient was found to have severely elevated creatinine above her baseline. Past Medical History Medical History: Medical History (Last Reviewed 01/27/18 @ 10:16 by Raffaele Nj MD) HTN (hypertension) I10 Allergies No Known Allergies Allergy (Verified 01/26/18 22:55) Home Medications: Ambulatory Orders Medication Instructions Recorded Buspar 01/27/18 Citalopram [Celexa] 20 mg PO DAILY 01/27/18 Cyclobenzaprine [Flexeril] 10 mg PO 01/27/18 Lisinopril [Prinivil] 5 mg PO 01/27/18 Surgical History: hysterectomy, - - x 2. Vein surgery. Lives: Spouse/ Significant Other Smoking Status: Former smoker Tobacco Use: Cigarettes Alcohol: None - *Family History Maternal History Items: Diabetes - Maternal uncle had diabetes. Patient Problems: Active and Suspected Problems (Last Reviewed 01/27/18 @ 10:16 by Raffaele Nj MD) Syncope and collapse (Acute) SHAUNNA (acute kidney injury) (Acute) - Physical Exam General: Alert, Oriented x3, Cooperative HEENT: Atraumatic, PERRLA, EOMI, Normocephalic Musculoskeletal: No Tenderness to Palpation of Joints or Extremities Neurological: Cranial nerves II-XII grossly intact, Deep Tendon Reflexes 2+/4 and Symmetrical, Neuro grossly intact, Motor Exam 5/5 strength throughout, Sensory exam intact to light touch and pain, Coordination normal Psych/Mental Status: Normal Affect, Appropriate Vital Signs Temp Pulse Resp BP Pulse Ox 36.9 C 79 16 136/88 H 97 01/27/18 09:00 01/27/18 09:00 01/27/18 09:00 01/27/18 09:00 01/27/18 09:00 Oxygen Delivery Method Room Air Weight: 59.4 kg Body Mass Index (BMI) 23.9 Finger Stick Blood Glucose 131 Orthostatic Vital Signs Start: 01/27/18 04:48 Freq: q24h Status: Active Protocol: Activity Type Activity Date Activity User E-Sign Co-Sign Detail Recorded Client Recorded Date Recorded By Document 01/27/18 03:15 HS [id number] 01/27/18 04:49 HS 01/27/18 03:15 Orthostatic Vitals Standing -Blood Pressure (90/60-120/80) 146/93 H -Extremity Use Right Arm -Pulse Rate (60-100) 109 H Sitting -Blood Pressure (90/60-120/80) 138/89 H -Extremity Use Right Arm -Pulse Rate (60-100) 91 Lying -Blood Pressure (90/60-120/80) 140/76 H -Extremity Use Right Arm -Pulse Rate (60-100) 82 Intake and Output for Last 24 Hours 01/25/18 01/26/18 01/27/18 23:59 23:59 23:59 Intake Total 572 / 572 Balance 572 / 572 Laboratory Tests Past 24 Hrs 01/26/18 01/26/18 01/26/18 22:55 22:55 22:55 WBC 10.2 RBC 4.30 Hgb 12.8 Hct 39.0 MCV 90.7 MCH 29.8 MCHC 32.8 RDW 14.1 RDW Differential 46.3 H Plt Count 236 MPV 10.4 Immature Gran % (Auto) 0.300 Neut % (Auto) 57.6 Lymph % (Auto) 32.1 [place] % (Auto) 7.1 Eos % (Auto) 2.3 Baso % (Auto) 0.6 Absolute Neuts (auto) 5.9 Absolute Lymphs (auto) 3.28 Total Counted Not Reportable PT 12.0 INR 0.9 APTT 23.0 L D-Dimer Quant (PE/DVT) 1.46 H* Sodium 142 Potassium 3.8 Chloride 108 H Carbon Dioxide 25.0 Anion Gap 9 BUN 13 Creatinine 1.23 H Estim Creat Clear Calc 33.95 Est GFR (MDRD) Af Amer 56 L Est GFR (MDRD) Non-Af 46 L BUN/Creatinine Ratio 10.6 Glucose 135 H Calcium 8.6 Magnesium Total Bilirubin 0.60 AST 14 L ALT 19 Alkaline Phosphatase 64 Total Creatine Kinase Troponin I < 0.015 Total Protein 6.9 Albumin 3.6 Globulin 3.3 Albumin/Globulin Ratio 1.1 Urine Color Urine Clarity Urine pH Ur Specific [place] Urine Protein Urine Glucose (UA) Urine Ketones Urine Occult Blood Urine Nitrite Urine Bilirubin Urine Urobilinogen Ur Leukocyte Esterase Urine RBC Urine WBC Ur Squamous Epith Cells Urine Bacteria Urine Mucus Urine Osmolality Ur Random Sodium Urine Creatinine 01/26/18 01/26/18 01/27/18 22:55 23:20 04:12 WBC RBC Hgb Hct MCV MCH MCHC RDW RDW Differential Plt Count MPV Immature Gran % (Auto) Neut % (Auto) Lymph % (Auto) [place] % (Auto) Eos % (Auto) Baso % (Auto) Absolute Neuts (auto) Absolute Lymphs (auto) Total Counted PT INR APTT D-Dimer Quant (PE/DVT) Sodium Potassium Chloride Carbon Dioxide Anion Gap BUN Creatinine Estim Creat Clear Calc Est GFR (MDRD) Af Amer Est GFR (MDRD) Non-Af BUN/Creatinine Ratio Glucose Calcium Magnesium 1.9 Total Bilirubin AST ALT Alkaline Phosphatase Total Creatine Kinase Troponin I Total Protein Albumin Globulin Albumin/Globulin Ratio Urine Color Yellow Urine Clarity Clear Urine pH 6.5 Ur Specific [place] 1.010 Urine Protein 15 H Urine Glucose (UA) Normal Urine Ketones Negative Urine Occult Blood 10 H Urine Nitrite Negative Urine Bilirubin Negative Urine Urobilinogen Normal Ur Leukocyte Esterase Negative Urine RBC 0-5 SEEN Urine WBC 0 SEEN Ur Squamous Epith Cells 0 SEEN Urine Bacteria 0 SEEN Urine Mucus 0 SEEN Urine Osmolality 428 Ur Random Sodium Urine Creatinine 01/27/18 01/27/18 01/27/18 04:12 04:12 05:26 WBC RBC Hgb Hct MCV MCH MCHC RDW RDW Differential Plt Count MPV Immature Gran % (Auto) Neut % (Auto) Lymph % (Auto) [place] % (Auto) Eos % (Auto) Baso % (Auto) Absolute Neuts (auto) Absolute Lymphs (auto) Total Counted PT INR APTT D-Dimer Quant (PE/DVT) Sodium 144 Potassium 4.0 Chloride 110 H Carbon Dioxide 27.0 Anion Gap 7 BUN 12 Creatinine 1.03 H Estim Creat Clear Calc 42.49 Est GFR (MDRD) Af Amer 69 Est GFR (MDRD) Non-Af 57 L BUN/Creatinine Ratio 11.7 Glucose 88 Calcium 8.2 L Magnesium Total Bilirubin AST ALT Alkaline Phosphatase Total Creatine Kinase 321 H Troponin I Total Protein Albumin Globulin Albumin/Globulin Ratio Urine Color Urine Clarity Urine pH Ur Specific [place] Urine Protein Urine Glucose (UA) Urine Ketones Urine Occult Blood Urine Nitrite Urine Bilirubin Urine Urobilinogen Ur Leukocyte Esterase Urine RBC Urine WBC Ur Squamous Epith Cells Urine Bacteria Urine Mucus Urine Osmolality Ur Random Sodium 122 Urine Creatinine 29.00 POC Glucose 01/26/18 23:22 POC Glucose 131 H Current Medications Generic Name Dose Route Start Last Admin Trade Name Freq PRN Reason Stop Dose Admin Acetaminophen 650 mg 01/27/18 03:46 Tylenol PO Q6H PRN PRN Mild Pain (1-3)/Temp > 100.7 F Bisacodyl 5 mg 01/27/18 03:46 Dulcolax PO DAILY PRN PRN Constipation Heparin Sodium (Porcine) 5,000 unit 01/27/18 06:00 01/27/18 05:04 Heparin Na SC 5,000 unit Q8 PAL Administration Sodium Chloride 1,000 mls @ 100 mls/hr 01/27/18 03:46 01/27/18 04:10 IV 01/27/18 13:45 100 mls/hr .Q10H PAL Administration Labetalol HCl 10 mg 01/27/18 03:46 Trandate IV Q4H PRN PRN sbp > 160 Magnesium Hydroxide 30 ml 01/27/18 03:46 Milk Of Magnesia PO DAILY PRN Constipation Polyethylene Glycol 17 gm 01/27/18 10:00 01/27/18 10:14 Miralax PO 17 gm DAILY PAL Administration Sodium Chloride 5 - 30 ml 01/27/18 04:20 01/27/18 04:05 IV 10 ml UD PRN Administration SALINE FLUSH ct head reviewed, normal ct c-spine reviewed, chronic osteophytes Assessment/Plan All Active Problems (Last Reviewed 01/27/18 @ 10:16 by Raffaele Nj MD) Syncope and collapse (Acute) SHAUNNA (acute kidney injury) (Acute) syncope vs sz await eeg await vq results await venous u/s mri brain
--- NOTE | 2018-01-27 10:40 | MRI_ITS ---
STUDY: MRI BRAIN WITH AND WITHOUT CONTRAST REASON FOR EXAM: Female, 67 years old. Syncope TECHNIQUE: Standardized multiplanar fat and water weighted pulse sequences were obtained. 6 ml of Gadavist contrast material was administered intravenously for the contrast portion of the examination. COMPARISON: CT of the brain on January 26, 2018 FINDINGS: Normal size of the ventricles and extra-axial spaces for the patient's age. Mild periventricular white matter ischemic change without mass effect or restricted diffusion. Normal bilateral basal ganglia. Normal thalami. There is no extra-axial fluid accumulation. Normal flow voids within the major intracranial circulation suggesting patency by spin echo criteria. Normal venous enhancement. There is no enhancing intra-axial or extra-axial abnormality. Normal sella turcica, pituitary gland, infundibular stalk, optic chiasm and hypothalamus. Normal tectal plate and pineal gland. Normal midbrain, essence and medulla. Normal cerebellum. Normal basal cisterns. Normal bilateral temporal bones. Normal bilateral internal auditory canals. No demonstrated orbital abnormality, within the constraints of a routine brain study. Minor mucosal thickening of the ethmoid air cells.. Normal calvarium and skull base. Normal visualized soft tissue structures. Normal visualized upper cervical spine. MRI/Brain W/WO Contrast IMPRESSION: Mild periventricular white matter ischemic changes without evidence for acute infarct Electronically Signed: Moses Rosario MD at 19:50 EDT , Service support ,
[2018-01-27] MEDS: busPIRone 15 MG TABLET PO (12:57)
[2018-01-27] MEDS: Lisinopril 5 MG Tablet PO (12:57)
--- NOTE | 2018-01-27 16:44 | NURSING ---
[facility] late d/t pt being off unit @ MRI
[2018-01-27] MEDS: Citalopram 20 MG Tablet PO (17:30)
[2018-01-27] MEDS: Bisacodyl 5 MG Tablet PO (17:30)
[2018-01-28] VITALS (7 sets, daily range): BP systolic 117–121; BP diastolic 67–69; PULSE 67–94; RESP 14–18; TEMP 36.5–36.6; O2SAT 95–98
[2018-01-28] MEDS: Heparin Injection (Vial) 5,000 UNIT/ML VIAL 5000 UNIT SC (05:07)
--- NOTE | 2018-01-28 05:22 | NURSING ---
c/o not having a bm. coffee and prune juice given
[2018-01-28] MEDS: Magnesium Hydroxide 30 ML UDC PO (08:11)
--- NOTE | 2018-01-28 09:27 | CASEMGMT ---
Pt had reported that LW/POA forms on chart, however they are not. SW met w/pt in room in regard to POA/LW papers, asked her to bring them in at some point in the future, pt states understanding. SHELLY Dowling, RN CASE MANAGEMENT
--- NOTE | 2018-01-28 09:29 | CASEMGMT ---
SW spoke w/pt in room in regard to POA, SW asked pt to bring the papers in at some point. Pt states understanding. Pt was concerned about being observation, SW explained will still be covered, though it is covered differently than an inpt stay. SW explained that the shoe parts caser look at the clinical information to make sure the status is correct. Pt states understanding. SW spoke w/pt about what happened, she explains she does not really know. She states she fell, and her heard her. She states she had leg cramps but is not certain how she fell. Pt is normally independent at home, lives home w/ who is also retired. He will be home w/pt when discharged. SW offered support to pt, no homegoing needs are anticipated however. SW/CM is available should any needs arise. SHELLY Dowling, MATERIAL STRESS TESTER
[2018-01-28] MEDS: busPIRone 15 MG TABLET PO (10:24)
[2018-01-28] MEDS: Lisinopril 5 MG Tablet PO (10:25)
--- NOTE | 2018-01-28 11:55 | DCINST_ITS ---
- Discharge Diagnoses Current Active Problems: Current Active and Chronic Problems (Last Reviewed 01/27/18 @ 10:16 by Raffaele Nj MD) Syncope and collapse (Acute) SHAUNNA (acute kidney injury) (Acute) You will use the following diet at home:: Cardiac Your food should be the consistency of: Regular Discharge Activity: Return to Normal Activity Weight Bearing Status: Weight bearing as tolerated Call your doctor if you observe: Fever of 101 or Higher, Shortness of breath, Dizziness, Fainting spells, Chest pain, Increased palpitations (irregular heartbeat), Uncontrolled pain Allergies/Adverse Reactions: Allergies No Known Allergies Allergy (Verified 01/26/18 22:55) Medications to take at Discharge Citalopram [Celexa] 20 mg PO QHS 01/27/18 Cyclobenzaprine [Flexeril] 10 mg PO DAILY 01/27/18 Lisinopril [Prinivil] 5 mg PO DAILY 01/27/18 busPIRone [Buspar] 15 mg PO DAILY 01/27/18 Primary Care Physician: Manju Santos DO [Primary Care Provider] - Please follow up with your Primary Care Physician in: 1 week. Test Results: Test results from this visit will be discussed in further detail at your follow- up appointment, if applicable.
--- NOTE | 2018-01-28 12:53 | EEG ---
- Electroencephalogram This is an 18 channel EEG performed on this 37-year-old female with a history of syncope. 18 channel electron esophagram is performed utilizing International 10-20 electrode placement protocol as well as hyperventilation, photic stimulation and EKG reference leads were utilized. Background activity is 8 Hz symmetrically in the posterior leads which attenuates with eye-opening. Hyperventilation is performed for 3 minutes with no lateralizing or epileptiform changes in the post hyperventilatory phase was unremarkable. The patient remained awake throughout the recording with no lateralizing or epileptiform changes. Photic stimulation generates a normal symmetric driving response. EKG is sinus throughout the recording. Impression: this is a normal awake electroencephalogram
--- NOTE | 2018-01-28 13:32 | PCM.DC.SUM ---
Discharge Date and Diagnosis Date of Admission: 01/27/18 Date of Discharge: 01/28/18 - Primary Discharge Diagnosis #1 syncopal episode, unclear etiology, possibly due to dehydration. #2 dehydration. #3 elevated d-dimer, no evidence of PE on CTA chest and V/Q lung scan. Hospital Course and Treatment Imaging Results: Clinical Impression(s) from Imaging Studies Chest CTA 01/26/18 00:00 IMPRESSION: The contrast bolus is suboptimal for accurately detecting pulmonary emboli. If there is further concern, consider nuclear medicine ventilation/perfusion lung scan. No acute pulmonary or mediastinal findings. Electronically Signed: Srinivas Willis MD at 1:08 EDT Tel , Service support , Brain CT 01/26/18 22:54 IMPRESSION: No fracture or hemorrhage. No evidence of acute infarct. Electronically Signed: Srinivas Willis MD at 0:11 EDT Tel , Service support , Cervical Spine CT 01/26/18 22:56 IMPRESSION: No acute osseous injury is evident. Comment: MRI is more sensitive than CT in detecting cord injury, ligament injury, and epidural hematoma. If there is continued clinical concern for any of these entities, MRI correlation should be considered if possible. Electronically Signed: Srinivas Willis MD at 0:13 EDT Tel , Service support , Chest X-Ray 01/26/18 23:05 IMPRESSION: No acute thoracic pathology. Electronically Signed: Jude Ayala, at 23:35 EDT Tel , Service support , Lung Scan-VQ NM 01/27/18 03:46 IMPRESSION: 1. NORMAL 99m Tc MAA pulmonary perfusion imaging examination, according to PIOPED II interpretive criteria. (Sotsman et al, Radiology 246: 941, 2008 Sorodney et al, J Nucl Med 49: 1741, 2008). 2. Central clumping of the aerosol may be secondary to obstructive airway mechanics and or clinical tachypnea. Electronically Signed: Marc Franz DO at 11:26 EDT Tel , Service support , Brain MRI 01/27/18 10:40 IMPRESSION: Mild periventricular white matter ischemic changes without evidence for acute infarct Electronically Signed: Moses Rosario MD at 19:50 EDT , Service support , Dr. Nj, neurology. Operations: None Procedures: 2-D Echocardiogram, Electroencephalogram, EKG Summary of Care Provided: The patient is a 67 year old F admitted because of syncopal episode. There was no obvious etiology identified for the syncope and attributed probably to dehydration. There was a concern that patient may have seizure because reportedly, she had back ruling of her eyes, was confused after the episode and she had significant leg cramps. She underwent extensive workup which all came back normal without acute findings. On admission, CT scan brain done and showed no evidence of acute hemorrhage or infarction. CT scan cervical spine showed no acute fractures or dislocations. CTA chest done because she had elevated d-dimer and that showed no evidence of PE or dissection but was not definitive and for this reason, VQ lung scan performed and was normal without evidence of acute pulmonary embolism. Venous Doppler of both legs showed no evidence of acute DVT. 2D echocardiogram revealed ejection fraction of 65%, stage I diastolic dysfunction, no significant valvular heart disease. Her routine blood work was remarkable for creatinine of 1.23 indicating mild dehydration for which she received IV fluids and her creatinine came down to 1.03. Remaining of her routine blood work was unremarkable. And LFT was normal. EKG revealed normal sinus rhythm without evidence of cardiac arrhythmias or acute ischemic changes and her troponin was negative. Her orthostatic vitals were unremarkable. Neurology consulted regarding the possible seizure and recommended MRI and EEG. MRI performed and showed no acute findings. EEG also done and was normal awake EEG. On the day of discharge, patient denied any complaints and she has been ambulating without difficulties. Her vital signs are stable. Patient discharged home in a stable medical condition, discharged on her regular chronic home medications without any changes, recommended follow-up with PCP in 1 week. - Physical Exam General: Alert, Oriented x3, Cooperative, No apparent distress HEENT: Atraumatic, PERRLA, EOMI, Normocephalic Oral: Moist Mucosa, No Gingival or Mucosal Lesions/ Ulcerations Neck: Supple, No JVD, Trachea Midline, Thyroid Normal Size and Texture Lungs: Clear to auscultation, Normal air movement, No rhonchi, No wheeze, No rales Cardiovascular: Regular rate, Regular Rhythm, Normal S1, Normal S2, PMI Normal Abdomen: Bowel Sounds Present, Soft, Non Tender, Non-Distended, No Hepato-splenomegaly Extremities: No clubbing, No cyanosis, No edema Skin: No rashes, No breakdown Lymphatic: No Cervical, Supraclavicular, or Inguinal Adenopathy Neurological: Cranial nerves II-XII grossly intact, Motor Exam 5/5 strength throughout Psych/Mental Status: Normal Affect, Appropriate, Alert and oriented to time, place, person, mood and affect Vital Signs Temp Pulse Resp BP Pulse Ox 97.7 F L 94 14 121/67 H 95 01/28/18 08:58 01/28/18 10:58 01/28/18 08:58 01/28/18 08:58 01/28/18 08:58 Oxygen Delivery Method Room Air Weight: 130 lb 15.273 oz Body Mass Index (BMI) 23.9 Finger Stick Blood Glucose 131 Intake and Output for Last 24 Hours 01/26/18 01/27/18 01/28/18 23:59 23:59 23:59 Intake Total 2143 / 2143 1360 / 1360 Balance 2143 / 2143 1360 / 1360 Discharge Activity: Return to Normal Activity Weight Bearing Status: Weight bearing as tolerated Call your doctor if you observe: Fever of 101 or Higher, Shortness of breath, Dizziness, Fainting spells, Chest pain, Increased palpitations (irregular heartbeat), Uncontrolled pain Home Medications: Medications to take at Discharge Citalopram [Celexa] 20 mg PO QHS 01/27/18 Cyclobenzaprine [Flexeril] 10 mg PO DAILY 01/27/18 Lisinopril [Prinivil] 5 mg PO DAILY 01/27/18 busPIRone [Buspar] 15 mg PO DAILY 01/27/18 Primary Care Physician: Manju Santos DO [Primary Care Provider] - Please follow up with your Primary Care Physician in: 1 week. Please Follow Up With: Manju Santos DO Medical Necessity - Tobacco Use Smoking Status: Former smoker Tobacco Use: Cigarettes Meaningful Use Info Meaningful Use Diagnoses (Choose all that apply): None applicable Code Visit OBSV E&M: 21897 Observation care discharge
--- NOTE | 2018-01-28 13:33 | NURSING ---
Student nurse charting reviewed and appropriate.
--- NOTE | 2018-01-28 13:37 | DS.PCM_ITS ---
Discharge Date and Diagnosis Date of Admission: 01/27/18 Date of Discharge: 01/28/18 - Primary Discharge Diagnosis #1 syncopal episode, unclear etiology, possibly due to dehydration. #2 dehydration. #3 elevated d-dimer, no evidence of PE on CTA chest and V/Q lung scan. Hospital Course and Treatment Imaging Results: Clinical Impression(s) from Imaging Studies Chest CTA 01/26/18 00:00 IMPRESSION: The contrast bolus is suboptimal for accurately detecting pulmonary emboli. If there is further concern, consider nuclear medicine ventilation/perfusion lung scan. No acute pulmonary or mediastinal findings. Electronically Signed: Srinivas Willis MD at 1:08 EDT Tel , Service support , Brain CT 01/26/18 22:54 IMPRESSION: No fracture or hemorrhage. No evidence of acute infarct. Electronically Signed: Srinivas Willis MD at 0:11 EDT Tel , Service support , Cervical Spine CT 01/26/18 22:56 IMPRESSION: No acute osseous injury is evident. Comment: MRI is more sensitive than CT in detecting cord injury, ligament injury, and epidural hematoma. If there is continued clinical concern for any of these entities, MRI correlation should be considered if possible. Electronically Signed: Srinivas Willis MD at 0:13 EDT Tel , Service support , Chest X-Ray 01/26/18 23:05 IMPRESSION: No acute thoracic pathology. Electronically Signed: Jude Ayala, at 23:35 EDT Tel , Service support , Lung Scan-VQ NM 01/27/18 03:46 IMPRESSION: 1. NORMAL 99m Tc MAA pulmonary perfusion imaging examination, according to PIOPED II interpretive criteria. (Sotsman et al, Radiology 246: 941, 2008 Sorodney et al, J Nucl Med 49: 1741, 2008). 2. Central clumping of the aerosol may be secondary to obstructive airway mechanics and or clinical tachypnea. Electronically Signed: Marc Franz DO at 11:26 EDT Tel , Service support , Brain MRI 01/27/18 10:40 IMPRESSION: Mild periventricular white matter ischemic changes without evidence for acute infarct Electronically Signed: Moses Rosario MD at 19:50 EDT , Service support , Dr. Nj, neurology. Operations: None Procedures: 2-D Echocardiogram, Electroencephalogram, EKG Summary of Care Provided: The patient is a 67 year old F admitted because of syncopal episode. There was no obvious etiology identified for the syncope and attributed probably to dehydration. There was a concern that patient may have seizure because reportedly, she had back ruling of her eyes, was confused after the episode and she had significant leg cramps. She underwent extensive workup which all came back normal without acute findings. On admission, CT scan brain done and showed no evidence of acute hemorrhage or infarction. CT scan cervical spine showed no acute fractures or dislocations. CTA chest done because she had elevated d- dimer and that showed no evidence of PE or dissection but was not definitive and for this reason, VQ lung scan performed and was normal without evidence of acute pulmonary embolism. Venous Doppler of both legs showed no evidence of acute DVT. 2D echocardiogram revealed ejection fraction of 65%, stage I diastolic dysfunction, no significant valvular heart disease. Her routine blood work was remarkable for creatinine of 1.23 indicating mild dehydration for which she received IV fluids and her creatinine came down to 1.03. Remaining of her routine blood work was unremarkable. And LFT was normal. EKG revealed normal sinus rhythm without evidence of cardiac arrhythmias or acute ischemic changes and her troponin was negative. Her orthostatic vitals were unremarkable. Neurology consulted regarding the possible seizure and recommended MRI and EEG. MRI performed and showed no acute findings. EEG also done and was normal awake EEG. On the day of discharge, patient denied any complaints and she has been ambulating without difficulties. Her vital signs are stable. Patient discharged home in a stable medical condition, discharged on her regular chronic home medications without any changes, recommended follow-up with PCP in 1 week. - Physical Exam General: Alert, Oriented x3, Cooperative, No apparent distress HEENT: Atraumatic, PERRLA, EOMI, Normocephalic Oral: Moist Mucosa, No Gingival or Mucosal Lesions/ Ulcerations Neck: Supple, No JVD, Trachea Midline, Thyroid Normal Size and Texture Lungs: Clear to auscultation, Normal air movement, No rhonchi, No wheeze, No rales Cardiovascular: Regular rate, Regular Rhythm, Normal S1, Normal S2, PMI Normal Abdomen: Bowel Sounds Present, Soft, Non Tender, Non-Distended, No Hepato- splenomegaly Extremities: No clubbing, No cyanosis, No edema Skin: No rashes, No breakdown Lymphatic: No Cervical, Supraclavicular, or Inguinal Adenopathy Neurological: Cranial nerves II-XII grossly intact, Motor Exam 5/5 strength throughout Psych/Mental Status: Normal Affect, Appropriate, Alert and oriented to time, place, person, mood and affect Vital Signs Temp Pulse Resp BP Pulse Ox 97.7 F L 94 14 121/67 H 95 01/28/18 08:58 01/28/18 10:58 01/28/18 08:58 01/28/18 08:58 01/28/18 08:58 Oxygen Delivery Method Room Air Weight: 130 lb 15.273 oz Body Mass Index (BMI) 23.9 Finger Stick Blood Glucose 131 Intake and Output for Last 24 Hours 01/26/18 01/27/18 01/28/18 23:59 23:59 23:59 Intake Total 2143 / 2143 1360 / 1360 Balance 2143 / 2143 1360 / 1360 Discharge Activity: Return to Normal Activity Weight Bearing Status: Weight bearing as tolerated Call your doctor if you observe: Fever of 101 or Higher, Shortness of breath, Dizziness, Fainting spells, Chest pain, Increased palpitations (irregular heartbeat), Uncontrolled pain Home Medications: Medications to take at Discharge Citalopram [Celexa] 20 mg PO QHS 01/27/18 Cyclobenzaprine [Flexeril] 10 mg PO DAILY 01/27/18 Lisinopril [Prinivil] 5 mg PO DAILY 01/27/18 busPIRone [Buspar] 15 mg PO DAILY 01/27/18 Primary Care Physician: Manju Santos DO [Primary Care Provider] - Please follow up with your Primary Care Physician in: 1 week. Please Follow Up With: Manju Santos DO Medical Necessity - Tobacco Use Smoking Status: Former smoker Tobacco Use: Cigarettes Meaningful Use Info Meaningful Use Diagnoses (Choose all that apply): None applicable Code Visit OBSV E&M: 40665 Observation care discharge
== END 2018-01-28 11:54 | disposition home or self-care (01) ==
LOC: ED 01-27 01:18 → PCU 01-27 02:25
PROVIDERS: Admitting Provider Hospitalist; Emergency Provider Emergency Medicine; Family Provider Family Medicine; PCP Family Medicine; Visit Provider Hospitalist
DX: R55 Syncope and collapse (principal); E86.0 Dehydration; R25.2 Cramp and spasm; R11.0 Nausea; K58.8 Other irritable bowel syndrome; I10 Essential (primary) hypertension; Z87.891 Personal history of nicotine dependence; Z79.899 Other long term (current) drug therapy; Z86.718 Personal history of other venous thrombosis and embolism; N17.9 Acute kidney failure, unspecified
CPT/HCPCS: 36415; 70450; 70553; 71045; 71275; 72125; 78582; 80048; 80053; 81001; 82550; 82570; 82962; 83735; 83935; 84300; 84484; 85025; 85379; 85610; 85730; 93005; 93306; 93970; 96361; 96372; 96374; 97161; 97165; 99218; 99285; A9540; A9567; A9585; J7030; Q9967; A4216; G0378; J2405

== ENCOUNTER → 2018-02-08 16:04 | Outpatient (CLI) | payer MEDICARE, SELFPAY ==
[2018-02-08 17:48] LABS: ALB/GLOB Ratio 1.2 RATIO (0.9-2.4); AST(SGOT) 18 U/L (15-37); Alanine Aminotransfer ALT/SGPT 26 U/L (13-56); Albumin, Serum 3.7 g/dL (3.2-5.0); Alkaline Phosphatase 60 U/L (45-117); Anion Gap 8 (5-15); BUN 18 mg/dL (7-18); CPK Total, Creatine Kinase 162 U/L (26-192); Calcium,Total 8.7 mg/dL (8.5-10.1); Chloride 106 mmol/L (98-107); EST Glomerular Filtration Rate 59 mL/min (>60); Est Glom Filt Rate - Afr Amer 71 mL/min (>60); Globulin 3.2 g/dL (2.2-4.2); Glucose 84 mg/dL (74-106); Potassium 3.8 mmol/L (3.5-5.1); Protein, Total 6.9 g/dL (6.4-8.2); Sodium Level 140 mmol/L (136-145)
== END ==
PROVIDERS: Family Provider Family Medicine; PCP Family Medicine; Visit Provider Family Medicine
DX: Z51.81 Encounter for therapeutic drug level monitoring (principal); R74.8 Abnormal levels of other serum enzymes; I82.90 Acute embolism and thrombosis of unspecified vein
CPT/HCPCS: 36415; 80053; 82550; 85379

== ENCOUNTER 2018-08-09 09:45 | Day surgery (SDC) | payer MEDICARE, SELFPAY ==
[2018-01-27 03:27] VITALS: BMI 23.9
--- NOTE | 2018-07-30 12:12 | EKG12_ITS ---
Test Reason : PRE-OP Blood Pressure : / mmHG Vent. Rate : 069 BPM Atrial Rate : 069 BPM P-R Int : 126 ms QRS Dur : 084 ms QT Int : 426 ms P-R-T Axes : 048 066 069 degrees QTc Int : 456 ms Normal sinus rhythm Normal ECG Confirmed by PRUDENCIO CORTES, GABINO ([id number]), fashion editor HERMELINDO TEIXEIRA ([id number]) on 08/03/2018 1:49:16 PM Referred By: Jose Ahn Confirmed By:GABINO FLANNERY MD
[2018-07-30 13:52] LABS: Hematocrit 39.6 % (37-47); Hemoglobin 12.8 g/dl (12.0-15.0); Mean Corp Hgb Conc 32.3 g/gl (32-36); Mean Corpuscular Hgb 29.1 pg (27.0-32.0); Platelet Count 272 K/mm3 (150-450); RBC Distribution Width CV 13.7 % (11.6-14.6); RBC Distribution Width SD 44.7 fl (35.1-43.9); White Blood Count 5.6 K/mm3 (4.4-11.0)
[2018-07-30 13:56] LABS: Scan Indicated on CBC? Y/N NO
[2018-07-30 14:14] LABS: Anion Gap 6 (5-15); BUN 15 mg/dL (7-18); BUN/Creat Ratio 14.9 RATIO (10-20); Calcium,Total 9.2 mg/dL (8.5-10.1); Chloride 105 mmol/L (98-107); Creatinine, Serum 1.01 mg/dL (0.55-1.02); EST Glomerular Filtration Rate 58 mL/min (>60); Est Glom Filt Rate - Afr Amer 70 mL/min (>60); Glucose 78 mg/dL (74-106); Potassium 3.8 mmol/L (3.5-5.1); Sodium Level 139 mmol/L (136-145)
[2018-08-09] VITALS (7 sets, daily range): BP systolic 107–131; BP diastolic 62–83; PULSE 67–79; RESP 14–16; TEMP 36.3–37.1; O2SAT 92–99; BMI 25.9
[2018-08-09] MEDS: Cefazolin 1 GM/50 ML BAG IV (11:42)
[2018-08-09] MEDS: Bupiv/Epi 0.5% Mpf 30 ML Vial (12:20)
--- NOTE | 2018-08-09 14:34 | PCM.OPRPT ---
Report of Operation Date of Procedure: 08/09/18 Pre-Operative Diagnosis: MMT and chondromalacia patella right knee Post-Operative Diagnosis: same with grade 2 chondromalacia patella Surgery/Procedure Performed:: D & O arthroscopy with partial medial meniscectomy and chondroplasty of the patella Description of Surgical Findings:: Primary Surgeon/Physician: Jose Ahn financial engineer: financial engineer: Pre-Operative Diagnosis: Medial Meniscus tear and chondromalacia patella right knee Post-Operative Diagnosis: same Surgery/Procedure Performed: Arthroscopic partial medial meniscectomy with chondroplasty right knee Estimated Blood Loss: minimal Specimen's Removed: none Type of Anesthesia: general ASA Class: 3 Indications: [ ] Patient has failed conservative measures and at this point has elected to undergo the above procedure. Procedure Description: The patient was greeted in the preoperative area. The [right ] knee was marked with surgical marker. Preoperative antibiotics were administered. The patient was then taken to the operating suite and placed in a supine position on operating room table. After adequate anesthesia was obtained and airway was secured a well-padded tourniquet was placed on patient's affected extremity. Leg was then prepped and draped in usual sterile fashion. Surgical timeout was performed and confirmed with all present and surgery was commenced. Standard anteromedial anterolateral portals were made and a 30? arthroscope was then inserted into the knee. [ ]. The patellofemoral joint revealed Grade 2 chondromalacia of the undersurface of the patella. The trochlear groove of the femur was well spared. The medial compartment was entered. There was an anteriorly based radial tear of the meniscus with a horizontal component emanating to the posterior portion of the meniscus. the articular cartilage was spared. The ACL and PCL were probed and intact. The lateral compartment revealed no pathology. A combination of straight and angled basket punches were used to perform a partial meniscectomy. The remainder of the meniscus was smoothed weth an arthroscopy shaver and the shaver was used to remove the meniscal fragments. The shaver was then used to perform a chondroplasty on the patella. The patellar cartilage was smoothed to a firm and stable surface. At this point all instruments were removed. Arthroscopic portals were closed in a standard fashion. 30 cc of 0.5% Marcaine was then injected into the knee. Well-padded nonadherent dressing was applied and secured with an Jasson wrap. The patient was extubated and taken to the recovery room in stable condition. Type of Anesthesia:: General Anesthesiologist: Esteban Ford Specimen's removed: none Drains: none Estimated Blood Loss (mL): minimal - Admit VTE Documentation VTE Present on Admission: No VTE Mechan Device Prophylaxis: SCD's, Thigh High HERNESTO Hose VTE Pharm Prophylaxis ordered?: No Reason prophylaxis not ordered:: Treatment Not Indicated
== END 2018-08-09 14:19 | disposition home or self-care (01) ==
LOC: SDC 09:45 → AC 09:45
PROVIDERS: Family Provider Family Medicine; PCP Family Medicine; Referring Provider Orthopaedic Surgery; Visit Provider Orthopaedic Surgery
PROC: (CPT 29870; principal; 2018-08-09 11:05)
DX: M22.41 Chondromalacia patellae, right knee (principal); S83.241A Other tear of medial meniscus, current injury, right knee, initial encounter; I10 Essential (primary) hypertension; Z87.891 Personal history of nicotine dependence
CPT/HCPCS: 29881; 36415; 80048; 85027; 93005; J7120; J2405

== ENCOUNTER 2018-09-07 10:00 | Outpatient (RCR) | payer MEDICARE, SELFPAY ==
[2018-08-09 10:07] VITALS: BMI 25.9
--- NOTE | 2018-08-17 13:47 | HP.PTEVAL ---
Patient's Visit Information ANDREW PEARSON is a 68 year old F referred to Physical Therapy by Nati Carson with a diagnosis of Right knee scope. Date of Evaluation: 08/17/18 Physical Therapist: Lisa Trevino DPT - Visit Plan Frequency: 1x/Week Duration: 4 Weeks Plan: HEP for 2-3 weeks then follow up - Subjective Findings: Patient reports that she has surgery 08/09/[address] Ahn- cleaned out the right knee- menisectomy and chondroplasty. Went home after surgery- lives in a two story home and is able to do them reciprocally. Had an injury in May and went [facility] and they said she did not need surgery. Worst: 3/10 Agg: sitting to long Best: 0/10 Eases:Ice. Describes the pain as dull and achy. Pain is located along the medial side of the knee and into the albert- No N/T in the LE. Very active prior to surgery- hurt her knee playing pickle ball. Had an x-ray and MRI prior to surgery but not since. Goes back to see MD on . Sleep: not disturbed. Work: retired. PMhx/Meds: no changes. - Objective Posture: good throughout. Gait: slightly antalgic- decreased stance on the right LE with poor heel strike due to decreased ROM. Stairs: asc/desc 8 recip with no HR- mild decreased control with descent. HR/TR: WNL. SLS: 10 sec then LOB. Palpation: medial border of the patella and joint line. ROM: 5-110 with stiffness at end range. Strength: Core: fair minus, Hip: 4+/5, Knee: 5/5, Ankle: 5/5. Flex: HS: mild, Gastroc: mild - Goals Goal 1:: Patient will be I with HEP and progression Goal Time Frame: 4-6 Weeks Goal 2:: Patient will demo 0-130 degrees of ROM Goal Time Frame: 4-6 Weeks Goal 3:: Patient will SLS for 30 sec Goal Time Frame: 4-6 Weeks Goal 4:: Patient will ambulate >300 feet with a normalized gait pattern Goal Time Frame: 4-6 Weeks - Rehabilitation Potential Physical Therapy Diagnosis: Patient presents with hypomobility-she has decreased ROM, strength and muscular endurance leading to abnormal gait and decreased participation with ADL's. Rehabilitation Potential: Good - Anticipated Interventions Patient/Client Instruction: Educate patient on: Benefits of Fitness Program Therapeutic Exercise to Include: Strength training, Endurance training, Balance training, Coordination, Agility training, Body mechanics, Postural training, Flexibilty training, Gait and locomotor training, Passive ROM, Active ROM, Dynamic Lumbar Stabilization For the Purpose of:: To improve muscle performance and motor function Thank you for the opportunity to evaluate your patient. For Medicare and Medicare HMO plans, please review the plan of care and approve it. It will need to be FAXED BACK to us at [phone] for Medicare purposes. For Medicare only, by signing this I certify the plan of care. Please let me know if there are questions or concerns regarding this plan of care. Physician Signature: Date:
--- NOTE | 2018-09-07 10:15 | HP.PTDCSUM ---
HP - PT D/C Summary It has been my pleasure to treat ANDREW PEARSON under orders from Nati Carson, for the diagnosis of Right knee scope for a total of 2 visit(s). Discharge Date: Please see the following information for a summary of their discharge status. - Subjective Subjective: Patient reports that she is doing great- is back to all her normal activities including yard work. She is very happy - Overall Improvement % Improvement: 90 - Objective Objective/Function: Posture: good throughout. Gait: no deviation noted Stairs: asc/desc 8 recip with no HR- HR/TR: WNL. SLS: 30 sec no LOB. Palpation: no tender. ROM: 0-120 Strength: Core: fair minus, Hip: 5/5, Knee: 5/5, Ankle: 5/5. Flex: HS: mild, Gastroc: mild - Goals Goal 1:: Patient will be I with HEP and progression Goal Progress: Goal Met Goal 2:: Patient will demo 0-130 degrees of ROM Goal Progress: Progressing Goal 3:: Patient will SLS for 30 sec Goal Progress: Goal Met Goal 4:: Patient will ambulate >300 feet with a normalized gait pattern Goal Progress: Goal Met - Plan Plan: Discharge to I HEP - D/C Information If there are questions or concerns regarding this patient's physical therapy, please feel free to call me at [phone]. Thank you for the referral of this patient. Sincerely, RHONDA FarahT
== END 2018-09-07 10:24 | disposition home or self-care (01) ==
LOC: PT 10:00
PROVIDERS: Family Provider Family Medicine; PCP Family Medicine; Referring Provider Physician Assistant; Visit Provider Physician Assistant
DX: M17.11 Unilateral primary osteoarthritis, right knee (principal); S83.241D Other tear of medial meniscus, current injury, right knee, subsequent encounter
CPT/HCPCS: 97110; 97161; 97164

== ENCOUNTER → 2018-10-20 13:27 | Outpatient (CLI) | payer MEDICARE, SELFPAY ==
[2018-08-09 10:07] VITALS: BMI 25.9
[2018-10-20 15:39] LABS: Absolute Lymphocyte Count 1.52 X10^3/uL (0.83-4.51); Absolute Neutrophil Count 3.5 X10^3/uL (2.0-7.7); Basophil# 0.07 X10^3/uL; Basophil% 1.2 % (0-1); Eosinophil# 0.49 X10^3/uL; Eosinophils% 8.1 % (0-5); Hematocrit 39.2 % (37-47); Hemoglobin 12.6 g/dL (12.0-15.0); Lymphocyte # 1.52 X10^3/ul (4.0); Mean Corp Hgb Conc 32.1 g/dL (32-36); Mean Corpuscular Hgb 29.4 pg (27.0-32.0); Mean Corpuscular Volume 91.6 fL (81-99); Mean Platelet Vol. 11.5 fl (6.2-12.0); Monocyte# 0.49 X10^3/uL; Monocyte% 8.1 % (0-10); NRBC Flagged by Analyzer 0 % (0-5); Neutrophil # 3.49 X10^3/uL (2.7-7.7); Neutrophil % 57.4 % (47-70); Platelet Count 249 K/mm3 (150-450); RBC Distribution Width CV 12.9 % (11.6-14.6); RBC Distribution Width SD 42.9 fl (35.1-43.9); Red Blood Count 4.28 M/mm3 (4.2-5.4); White Blood Count 6.1 K/mm3 (4.4-11.0)
[2018-10-20 16:36] LABS: Vitamin B12 480 pg/mL (211-911)
[2018-10-20 16:44] LABS: ALB/GLOB Ratio 1.3 RATIO (0.9-2.4); AST(SGOT) 17 U/L (15-37); Alanine Aminotransfer ALT/SGPT 19 U/L (13-56); Alkaline Phosphatase 76 U/L (45-117); Anion Gap 11 (5-15); BUN 14 mg/dL (7-18); Calcium,Total 9.3 mg/dL (8.5-10.1); Chloride 106 mmol/L (98-107); EST Glomerular Filtration Rate 59 mL/min (>60); Est Glom Filt Rate - Afr Amer 71 mL/min (>60); Ferritin 44 ng/mL (8-252); Free T3 2.3 pg/mL (2.18-3.98); Globulin 3.1 g/dL (2.2-4.2); Glucose 81 mg/dL (74-106); Iron 56 ug/dL (50-170); Potassium 3.8 mmol/L (3.5-5.1); Protein, Total 7.1 g/dL (6.4-8.2); Sodium Level 144 mmol/L (136-145); T4 Free Direct 0.82 ng/dL (0.76-1.46); Thyroid Stim Hormone (TSH) 1.29 uIU/mL (0.358-3.74)
== END ==
PROVIDERS: Family Provider Family Medicine; PCP Family Medicine; Visit Provider Family Medicine
DX: I10 Essential (primary) hypertension (principal); G25.81 Restless legs syndrome; R53.83 Other fatigue; N17.9 Acute kidney failure, unspecified; Z51.81 Encounter for therapeutic drug level monitoring; M79.10 Myalgia, unspecified site; D64.9 Anemia, unspecified
CPT/HCPCS: 36415; 80053; 82607; 82728; 83540; 83735; 84439; 84443; 84481; 85025

== ENCOUNTER 2019-01-03 09:22 | Day surgery (SDC) | payer MEDICARE, SELFPAY ==
[2018-08-09 10:07] VITALS: BMI 25.9
--- NOTE | 2018-12-22 10:15 | EKG12_ITS ---
Test Reason : PRE-OP Blood Pressure : / mmHG Vent. Rate : 062 BPM Atrial Rate : 062 BPM P-R Int : 138 ms QRS Dur : 076 ms QT Int : 444 ms P-R-T Axes : 031 069 056 degrees QTc Int : 450 ms Normal sinus rhythm Normal ECG When compared with ECG of 30-JUL-2018 12:26, No significant change was found Confirmed by MASON CORTES, JEFF ([id number]), field map editor HERMELINDO TEIXEIRA ([id number]) on 12/24/2018 10:41:09 A M Referred By: Jose Ahn Confirmed By:COURTNEY CUEVAS MD
[2018-12-22 10:33] LABS: Hematocrit 38.5 % (37-47); Hemoglobin 12.4 g/dL (12.0-15.0); Mean Corp Hgb Conc 32.2 g/dL (32-36); Mean Corpuscular Hgb 29.2 pg (27.0-32.0); Mean Corpuscular Volume 90.6 fL (81-99); Mean Platelet Vol. 10.9 fl (6.2-12.0); Platelet Count 247 K/mm3 (150-450); RBC Distribution Width CV 13.2 % (11.6-14.6); RBC Distribution Width SD 43.3 fl (35.1-43.9); Red Blood Count 4.25 M/mm3 (4.2-5.4); White Blood Count 5.5 K/mm3 (4.4-11.0)
[2018-12-22 11:00] LABS: Anion Gap 7 (5-15); BUN 13 mg/dL (7-18); BUN/Creat Ratio 14.5 RATIO (10-20); Calcium,Total 9.1 mg/dL (8.5-10.1); Chloride 106 mmol/L (98-107); EST Glomerular Filtration Rate 67 mL/min (>60); Est Glom Filt Rate - Afr Amer 81 mL/min (>60); Glucose 91 mg/dL (74-106); Potassium 3.8 mmol/L (3.5-5.1); Sodium Level 143 mmol/L (136-145)
[2019-01-03 10:32] VITALS: BP 133/75; PULSE 64; RESP 14; TEMP 37.1; O2SAT 96; BMI 25.9
[2019-01-03] MEDS: Lactated Ringers 1,000 ML 100 ML IV (10:52)
[2019-01-03] MEDS: Epinephrine (1 mg/ml) 1 MG/ML VIAL (11:25)
[2019-01-03] MEDS: Cefazolin 2 GM in 0.9% Normal Saline 100 ML IV (11:50)
[2019-01-03] MEDS: Bupiv/Epi 0.5% Mpf 30 ML Vial (12:31)
[2019-01-03 12:48] VITALS: BP 133/75; BP 144/90; PULSE 84; RESP 18; TEMP 36.6; O2SAT 96
--- NOTE | 2019-01-03 12:49 | OP.PCM_ITS ---
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 Procedure Description: The patient was greeted in the preoperative area. The [left ] knee was marked with surgical marker. Preoperative antibiotics were administered. The patient was then taken to the operating suite and placed in a supine position on operating room table. After adequate anesthesia was obtained and airway was secured a well-padded tourniquet was placed on patient's affected extremity. Leg was then prepped and draped in usual sterile fashion. Surgical time out was performed and confirmed with all present and surgery was commenced. Standard anteromedial anterolateral portals were made and a 30? arthroscope was then inserted into the knee. [There was diffuse grade 3 chondromalacia of the patella with sparing of the trochlear groove. The medial compartment was entered. The medial meniscus was probed and there was found to be a multilayered tear of the medial meniscus extending from the posterior portion of the meniscus to the mid body. There was grade 2/3 chondromalacia of the MFC associated with this tear. The ACL and PCL were probed and intact. The lateral compartment showed no meniscal or surface cartilage pathology. A combination of straight and angled meniscal biters were used to trim the medial meniscus to a firm, stable rim. The meniscal fragments were removed with a shaver and the shaver was utilized to smooth the meniscus back to a firm, stable rim. The shaver was then used to perform a chondroplasty on the patella and medial femoral condyle. Unstable and delaminated surface cartilage was removed and the surface cartilage was smoothed with the shaver. At this point all instruments were removed. Arthroscopic portals were closed in a standard fashion. 30 cc of 0.5% Marcaine was then injected into the knee. Well-padded nonadherent dressing was applied and secured with an Jasson wrap. The patient was taken to the recovery room in stable condition. Type of Anesthesia:: General Anesthesiologist: Mendel Jackson Estimated Blood Loss (mL): <10cc - Admit VTE Documentation VTE Present on Admission: No VTE Mechan Device Prophylaxis: SCD's, Thigh High HERNESTO Hose VTE Pharm Prophylaxis ordered?: No Reason prophylaxis not ordered:: Treatment Not Indicated
[2019-01-03 13:00] VITALS: BP 133/75; BP 135/80; PULSE 77; RESP 18; O2SAT 100
[2019-01-03 13:15] VITALS: BP 103/82; BP 133/75; PULSE 71; RESP 18; O2SAT 98
[2019-01-03 13:30] VITALS: BP 125/73; BP 133/75; PULSE 72; RESP 18; TEMP 36.9; O2SAT 96
[2019-01-03 14:04] VITALS: BP 133/75
== END 2019-01-03 14:05 | disposition home or self-care (01) ==
LOC: SDC 09:22 → AC 09:58
PROVIDERS: Family Provider Family Medicine; PCP Family Medicine; Referring Provider Orthopaedic Surgery; Visit Provider Orthopaedic Surgery
PROC: (CPT 29870; principal; 2019-01-03 11:15)
DX: S83.242A Other tear of medial meniscus, current injury, left knee, initial encounter (principal); M17.12 Unilateral primary osteoarthritis, left knee; X58.XXXA Exposure to other specified factors, initial encounter; Y93.89 Activity, other specified; Y92.9 Unspecified place or not applicable; F41.9 Anxiety disorder, unspecified; Z79.899 Other long term (current) drug therapy; I10 Essential (primary) hypertension; Z87.891 Personal history of nicotine dependence; G25.81 Restless legs syndrome
CPT/HCPCS: 29881; 36415; 80048; 85027; 93005; J7120; J2405

== ENCOUNTER → 2020-04-20 16:49 | Outpatient (CLI) | payer MEDICARE, SELFPAY | PROVIDERS: PCP Family Medicine; Visit Provider Family Medicine | DX: N39.0 Urinary tract infection, site not specified (principal) | CPT/HCPCS: 87086; 87088 ==

== ENCOUNTER 2021-03-30 17:42 | Emergency (ER) | payer MEDICARE, SELFPAY ==
[2021-03-30 17:43] VITALS: BP 188/98; PULSE 109; RESP 16; TEMP 36.7; O2SAT 97; BMI 26.5
--- NOTE | 2021-03-30 18:01 | EX.ED.VIS.UR ---
HPI HPI - URI History of Present Illness Chief Complaint: Headache Narrative Narrative: 71-year-old female presenting with concerns she might have COVID-19. She currently cares for her daughter who has COVID-19. Patient is unvaccinated for COVID-19 and is very adamant about not getting a vaccination. She is however it did in the monoclonal antibody treatment. She states that she has chest congestion, mild cough. She is not dyspneic. She is not had a fever. Symptoms have been ongoing for 2 days. ROS ROS ED Constitutional Constitutional ED: Denies chills, fever(s) or sweats Eyes Eyes: Denies blurry vision or change in vision ENT ENT ED: Reports rhinorrhea Cardiovascular Cardiovascular: Denies chest pain, palpitations or racing heartbeat Respiratory/Chest Respiratory/Chest: Reports cough Gastrointestinal Gastrointestinal: Denies abdominal pain, constipation, diarrhea, nausea or vomiting Genitourinary Genitourinary ED: Denies dysuria, hematuria or urinary frequency Musculoskeletal Musculoskeletal: Denies arthralgias, myalgias or neck pain Integumentary Denies abscess, Abrasions or rash Neurologic Neurologic: Denies headache(s), paresthesias or weakness Psychiatric Psychiatric: Denies anxiety, depression, suicidal ideation or suicidal thoughts Endocrine Endocrinology: Denies polydipsia or polyuria PFSH PFSH Medical History HTN (hypertension) Home Medications buspirone 15 mg PO DAILY 01/27/18 [History Last Taken 08/09/18 07:00 15 MG] citalopram 20 mg PO QHS 01/27/18 [History Last Taken 01/26/18] lisinopril [Prinivil] 20 mg PO DAILY 01/27/18 [History Last Taken 01/03/19] Allergy/AdvReac Type Severity Reaction Status Date / Time oxycodone Allergy Other Verified 03/30/21 17:45 Social History Smoking Status: Former smoker EXAM Physical Exam Const Vital Signs: 03/30/21 17:43 03/30/21 18:38 Temperature 98.0 F Temperature Source Temporal Pulse Rate 109 H Respiratory Rate 16 15 Blood Pressure 188/98 H 155/71 H Blood Pressure Mean 128 Pulse Ox 97 97 Oxygen Delivery Method Room Air General Appearance ED: Negative for pallor HEENT Reports normocephalic, head/scalp atraumatic and moist mucous membranes Eyes PERRL and EOMs intact bilaterally Neck no lymphadenopathy and supple Chest Wall inspection of chest normal and palpation of chest normal Resp normal respiratory effort and clear to auscultation bilaterally Auscultation: Negative for rales, rhonchi or wheezes Cardio regular rate and regular rhythm GI normal to inspection, nondistended, normoactive bowel sounds and non-distended Auscultation: normoactive bowel sounds Palpation: soft Narrative: Deferred Extremity Negative for normal to inspection General Extremety ED: Yes edema; Negative for tenderness General Extremity: edema Neuro oriented x3 and CN's II-XII intact bilaterally Sensorium / Orientation: alert Motor Exam: strength 5/5 throughout Psych mental status grossly normal Attitude: No agitated Skin no rashes or lesions noted and no wounds General Skin Exam: Negative for jaundice or pallor MDM MDM MDM Narrative Medical decision making narrative: Patient presenting with cough. She has no significant symptoms. She wants to be tested for Covid so she can get the monoclonal antibodies. Her rapid Covid was negative however then sent for PCR and this was positive. Patient was referred to monoclonal antibodies. Patient given return precautions. Impression: 1. COVID-19 Lab Data Attestation: I reviewed the patient's lab results. Labs: Laboratory Results - last 24 hr 03/30/21 18:35 COVID-19 (CARLO) Detected Discharge Plan Triage Chief Complaint: Headache ED Provider: Abebe Santos Dx/Rx/DC Orders Instructions: Coronavirus Disease 2019 (COVID-19): Caring for Yourself or Others, ED - COVID Monoclonal AB Infusion ... Prescriptions: No Action citalopram 20 MG tablet 20 mg PO QHS RF: 0 lisinopril [Prinivil] 5 MG tablet 20 mg PO DAILY RF: 0 buspirone 15 MG tablet 15 mg PO DAILY RF: 0 Primary Care Provider: Manju Santos Referrals: Manju Santos DO [Primary Care Provider] - Disposition Disposition: Home, Self Care Discharge Date/Time: 03/30/21 18:38
[2021-03-30 18:38] VITALS: BP 155/71; RESP 15; O2SAT 97
== END 2021-03-30 18:38 | disposition home or self-care (01) ==
PROVIDERS: Emergency Provider Student in an Organized Health Care Education/Training Program; PCP Family Medicine
DX: U07.1 COVID-19 (principal); Z87.891 Personal history of nicotine dependence; Z79.899 Other long term (current) drug therapy
CPT/HCPCS: 87426; 87635; 99282; U0003; U0005

== ENCOUNTER 2021-04-05 17:17 | Outpatient (CLI) | payer MEDICARE, SELFPAY ==
[2021-04-05 17:19] VITALS: BP 130/74; PULSE 72; RESP 16; TEMP 36.8; O2SAT 96; BMI 24.7
[2021-04-05] MEDS: 0.9% Saline Lock 10 ML Syringe IV (17:22)
[2021-04-05 17:46] VITALS: BP 121/77; PULSE 68; RESP 16; TEMP 36.8; O2SAT 98
[2021-04-05 18:44] VITALS: BP 122/73; PULSE 63; RESP 16; TEMP 36.9; O2SAT 97
== END 2021-04-05 23:59 | disposition home or self-care (01) ==
LOC: MS3OUT 17:17 → MS3 17:18
PROVIDERS: PCP Family Medicine; Referring Provider Nurse Practitioner Adult Health; Visit Provider Nurse Practitioner Adult Health
DX: Z23 Encounter for immunization (principal); U07.1 COVID-19
CPT/HCPCS: J7050; M0243; A4216; Q0244

== ENCOUNTER → 2022-06-20 | Outpatient (CLI) | payer MEDICARE, SELFPAY ==
[2022-06-20 17:56] LABS: Absolute Lymphocyte Count 1.74 X10^3/uL (0.83-4.51); Absolute Neutrophil Count 3.3 X10^3/uL (2.0-7.7); Basophil# 0.06 X10^3/uL; Basophil% 1.1 % (0-1); Eosinophil# 0.13 X10^3/uL; Eosinophils% 2.3 % (0-5); Hematocrit 41.5 % (37-47); Hemoglobin 13.3 g/dL (12.0-15.0); Lymphocyte # 1.74 X10^3/ul (0.83-4.51); Lymphocyte % 30.6 % (19-41); Mean Corpuscular Hgb 29.6 pg (27.0-32.0); Mean Corpuscular Volume 92.4 fL (81-99); Mean Platelet Vol. 11.9 fl (6.2-12.0); Monocyte# 0.45 X10^3/uL; Monocyte% 7.9 % (0-10); NRBC Flagged by Analyzer 0 % (0-5); Neutrophil # 3.29 X10^3/uL (2.7-7.7); Neutrophil % 57.9 % (47-70); Platelet Count 243 K/mm3 (150-450); RBC Distribution Width CV 13.3 % (11.6-14.6); RBC Distribution Width SD 45.2 fl (35.1-43.9); Red Blood Count 4.49 M/mm3 (4.2-5.4); White Blood Count 5.7 K/mm3 (4.4-11.0)
[2022-06-20 18:13] LABS: ALB/GLOB Ratio 1.4 RATIO (0.9-2.4); AST(SGOT) 20 U/L (15-37); Alanine Aminotransfer ALT/SGPT 20 U/L (13-56); Alkaline Phosphatase 65 U/L (45-117); Anion Gap 5 (5-15); BUN 12 mg/dL (7-18); BUN/Creat Ratio 12.1 RATIO (10-20); Calcium,Total 9.6 mg/dL (8.5-10.1); Chloride 106 mmol/L (98-107); Creatinine, Serum 0.99 mg/dL (0.55-1.02); EST Glomerular Filtration Rate 59 mL/min (>60); Est Glom Filt Rate - Afr Amer 71 mL/min (>60); Globulin 2.9 g/dL (2.2-4.2); Glucose 97 mg/dL (74-106); Potassium 3.7 mmol/L (3.5-5.1); Protein, Total 6.9 g/dL (6.4-8.2); Sodium Level 141 mmol/L (136-145)
== END | disposition home or self-care (01) ==
LOC: BFHLAB 11:46
PROVIDERS: PCP Family Medicine; Visit Provider Family Medicine
DX: R10.11 Right upper quadrant pain (principal)
CPT/HCPCS: 36415; 80053; 85025